=== PATIENT | male | born 1960 | race African-American/Black ===

== ENCOUNTER → 2016-10-08 | Outpatient (CLI) | payer OTHER | LOC: OD 12:01 | PROVIDERS: ATTEND Urology | DX: C61 Malignant neoplasm of prostate (principal) | CPT/HCPCS: 36415; 84153 ==

== ENCOUNTER 2016-11-10 16:15 | Emergency (ER) | payer MEDICAID, OTHER ==
[2016-11-10] MEDS ORDERED: OXYCODONE-ACETAMINOPHEN 5-325 MG TABLET PO ONE ×2 (16:29→19:07)
--- NOTE | 2016-11-10 16:30 | ER Document Report ---
ED Medical Screen (RME) - General Stated Complaint: GROIN PAIN Mode of Arrival: Wheelchair Information source: Patient, Relative - Notes: Patient presents to the emergency department with complaints of severe testicular pain. Patient reports robotic surgery for prostate cancer August 26. He reports he's been doing great. He reports pain started earlier this morning. Denies other symptoms such as fever vomiting diarrhea. Ultrasound notified of testicular ultrasound ordered.. I have greeted and performed a rapid initial assessment of this patient. A comprehensive ED assessment and evaluation of the patient, analysis of test results and completion of the medical decision making process will be conducted by additional ED providers. TRAVEL OUTSIDE OF THE [place] IN LAST 30 DAYS: No - Related Data Allergies/Adverse Reactions: No Known Allergies Allergy (Verified 11/10/16 16:29)
[2016-11-10 16:55] LABS: APPEARANCE,URINE CLEAR; BILIRUBIN,URINE NEGATIVE (NEGATIVE); GLUCOSE, URINE NEGATIVE (NEGATIVE); KETONES,URINE NEGATIVE (NEGATIVE); LEUKOCYTE ESTERASE,URINE NEGATIVE (NEGATIVE); NITRITE,URINE NEGATIVE (NEGATIVE); PROTEIN,URINE NEGATIVE (NEGATIVE); URINE SPECIFIC GRAVITY 1.027; UROBILINOGEN,URINE NEGATIVE mg/dL (<2.0)
--- NOTE | 2016-11-10 18:35 | ER Document Report ---
ED GI/ <ERNESTINANATALIAVIKAS - Last Filed: 11/11/16 04:20> - General Mode of Arrival: Wheelchair TRAVEL OUTSIDE OF THE [place] IN LAST 30 DAYS: No <ANJELICA SCHERER - Last Filed: 11/11/16 07:06> - General Chief Complaint: Testicular Pain Stated Complaint: GROIN PAIN Notes: Patient is a 56-year-old male who presents to the emergency Department complaining of groin pain. Patient is post op from laparoscopic prostate resection for prostate cancer on 08/26/[address] Tariq at [facility]. Patient states that his sudden onset this morning which she noticed after he woke up. Patient states it is not necessarily his scrotum up behind his scrotum within. Denies any notable swelling skin tenderness, erythema or redness any drainage. He states that he has been urinating frequently after his procedure occasional dripping from his penis denies any pyuria, urgency or hematuria. He does note that he had pink tinge to his urine today times one episode. Nausea and vomiting. States that he has been having bowel movements regularly since procedure. His only other postop complication was March 05 hospital for PE DVT. He is on Lovenox twice a day. Denies any past medical history. Denies any history of diabetes Past surgical history as above Social history denies recheck use, alcohol or drug use. pcp is Dr. Michelle (ANJELICA SCHERER) - Related Data Allergies/Adverse Reactions: No Known Allergies Allergy (Verified 11/10/16 16:29) Past Medical History - General Information source: Patient, Relative - - Social History Smoking Status: Never Smoker Chew tobacco use (# tins/day): No Frequency of alcohol use: None Drug Abuse: None Family History: Reviewed & Not Pertinent Patient has suicidal ideation: No Patient has homicidal ideation: No Renal/ Medical History: Denies: Hx Peritoneal Dialysis <ANJELICA SCHERER - Last Filed: 11/11/16 07:06> Review of Systems - Review of Systems Constitutional: No symptoms reported EENT: No symptoms reported Cardiovascular: No symptoms reported Respiratory: No symptoms reported Gastrointestinal: No symptoms reported Genitourinary: See HPI Male Genitourinary: See HPI Musculoskeletal: No symptoms reported Skin: No symptoms reported Hematologic/Lymphatic: No symptoms reported Neurological/Psychological: No symptoms reported <ANJELICA SCHERER - Last Filed: 11/11/16 07:06> Physical Exam <VIKAS LANDRY - Last Filed: 11/11/16 04:20> <ANJELICA SCHERER - Last Filed: 11/11/16 07:06> - Vital signs Vitals: Temp Pulse Resp BP Pulse Ox 98.2 F 88 20 138/83 H 98 11/10/16 16:25 11/10/16 16:25 11/10/16 16:25 11/10/16 16:25 11/10/16 16:25 - Notes Notes: PHYSICAL EXAM GENERAL: Alert, interacts well. HEAD: Normocephalic, atraumatic. NECK: Full range of motion. Supple. Trachea midline. LUNGS: Clear to auscultation bilaterally, no wheezes, rales, or rhonchi. No respiratory distress. HEART: Regular rate and rhythm. No murmurs, gallops, or rubs. ABDOMEN: Soft, nondistended, nontender. No guarding, rebound, or rigidity.. Bowel sounds present in all 4 quadrants. Male : No evidence of scrotal swelling or tenderness. Testicles nontender, symmetrical. Pain to palpation of the perineum to deep palpation. no femoral lympadenopathy EXTREMITIES: Moves all 4 extremities spontaneously. No edema, radial and dorsalis pedis pulses 2/4 bilaterally. No cyanosis. NEUROLOGICAL: Alert and oriented x4. Normal speech. PSYCH: Normal affect, normal mood. SKIN: Warm, dry, normal turgor. No rashes or lesions noted. (ANJELICA SCHERER) Course - Laboratory Result Diagrams: 11/10/16 19:40 11/10/16 19:40 <VIKAS LANDRY - Last Filed: 11/11/16 04:20> - Laboratory Result Diagrams: 11/10/16 19:40 11/10/16 19:40 <ANJELICA SCHERER - Last Filed: 11/11/16 07:06> - Re-evaluation Re-evalutation: 11/11/16 CT of the pelvis with IV contrast with no acute abnormality including no abscess. Consistent with prostatectomy. Called and spoke with patient's personal urologist Dr. tariq, discussed labs, workup, symptoms, vital signs. His recommendation is to place a culture on the urine, to provide patient with pain medication such as Vicodin or Percocet, to have him be seen on Thursday of this week instead of next month, and to return immediately if he develops fever or any other worsening symptoms. Patient is comfortable on reevaluations, I discussed this in detail with patient and significant other at bedside, they state understanding and agreement with the plan. Patient ambulated easily and without difficulty from the department. (VIKAS LANDRY) 11/10/16 19:25 Patient is a 48-year-old male is significant erythema, no acute distress and afebrile. Physical exam concerning pelvic process given recent surgical history. I have contacted supervising physician Dr. Sahil Yi to evaluate the patient and recommended further evaluation. He has recommended CT of the pelvis with IV contrast. I discussed this plan with the patient and family who are agreeable. At this time since the patient admits to SELENA Landry who will take over care of this patient and follow up on CT scan and lab work up (ANJELICA SCHERER) - Vital Signs Vital signs: Temp Pulse Resp BP Pulse Ox 99.7 F 88 18 144/85 H 96 11/10/16 23:18 11/10/16 23:18 11/10/16 23:18 11/10/16 23:18 11/10/16 23:18 - Laboratory Laboratory results interpreted by me: 11/10/16 11/10/16 11/10/16 16:30 19:40 19:40 WBC 15.7 H RBC 5.87 H MCV 78 L MCH 25.6 L RDW 15.1 H Seg Neutrophils % 84.1 H Lymphocytes % 9.6 L Absolute Neutrophils 13.2 H Sodium 132.9 L Chloride 96 L Glucose 121 H Calcium 10.5 H Total Protein 8.5 H Urine Blood SMALL H Discharge <VIKAS LANDRY - Last Filed: 11/11/16 04:20> <ANJELICA SCHERER - Last Filed: 11/11/16 07:06> - Discharge Clinical Impression: Pelvic pain Condition: Stable Disposition: HOME, SELF-CARE Additional Instructions: The source of your pain is not entirely clear at this time, no obvious abnormalities are seen on her workup today. Have a urine culture growing in our laboratory, please follow-up with Dr. tariq in the office on Thursday for a reevaluation. Take the pain medication if needed, take a stool softener with pain medication to avoid constipation. Return immediately if you develop fever, have severe pain or swelling, or have any other concerning symptoms. Prescriptions: Docusate Sodium [Colace 100 mg Capsule] 100 mg PO DAILY #30 capsule Oxycodone HCl/Acetaminophen [Percocet 5-325 mg Tablet] 1 - 2 tab PO Q4H PRN #15 tablet PRN Reason: Referrals: RAQUEL MICHELLE DO [Primary Care Provider] - Follow up as needed
[2016-11-10 19:57] LABS: ABSOLUTE BASOPHILS # (AUTO) 0.1 10^3/uL (0.0-0.2); ABSOLUTE LYMPHOCYTES (AUTO) 1.5 10^3/uL (0.5-4.7); ABSOLUTE MONOCYTES (AUTO) 0.9 10^3/uL (0.1-1.4); ABSOLUTE NEUT (AUTO) 13.2 10^3/uL (1.7-8.2); BASOPHILS % (AUTO) 0.3 % (0-2); EOSINOPHILS % (AUTO) 0.1 % (0-6); LYMPHOCYTES % (AUTO) 9.6 % (13-45); MEAN CORPUSCULAR HEMOGLOBIN 25.6 pg (27.0-33.4); MEAN CORPUSCULAR HGB CONC 32.7 g/dL (32.0-36.0); MEAN CORPUSCULAR VOLUME 78 fl (80-97); MONOCYTES % (AUTO) 5.9 % (3-13); RED BLOOD COUNT 5.87 10^6/uL (4.35-5.55); RED CELL DISTRIBUTION WIDTH 15.1 % (11.5-14.0); SEGMENTED NEUTROPHILS % (AUTO) 84.1 % (42-78); WHITE BLOOD COUNT 15.7 10^3/uL (4.0-10.5)
[2016-11-10 20:16] LABS: ALANINE AMINOTRANSFERASE 31 U/L (21-72); ALBUMIN 4.8 g/dL (3.5-5.0); ALKALINE PHOSPHATASE 68 U/L (38-126); ANION GAP 13 (5-19); ASPARTATE AMINO TRANSFERASE 22 U/L (17-59); BILIRUBIN,TOTAL 0.4 mg/dL (0.2-1.3); BLOOD UREA NITROGEN 14 mg/dL (7-20); CALCIUM 10.5 mg/dL (8.4-10.2); CARBON DIOXIDE 24 mmol/L (22-30); CHLORIDE 96 mmol/L (98-107); CREATININE RESULT 0.92 mg/dL (0.52-1.25); GLUCOSE 121 mg/dL (75-110); POTASSIUM 4.9 mmol/L (3.6-5.0); SODIUM 132.9 mmol/L (137-145); TOTAL PROTEIN 8.5 g/dL (6.3-8.2)
[2016-11-10] MEDS ORDERED: NORMAL SALINE 1000 ML 1,000 ML IV ONE (20:48)
[2016-11-10] MEDS ORDERED: HYDROCODONE/ACETAMINOPHEN 5-325 MG 6 TAB/DSPK PO PRN (22:49)
[2016-11-10 23:21] VITALS: BP 144/85
== END 2016-11-10 23:23 | disposition home or self-care (01) ==
LOC: ER 16:15
DX: R10.2 Pelvic and perineal pain (principal); N50.812 Left testicular pain; N50.811 Right testicular pain; Z98.890 Other specified postprocedural states; Z85.46 Personal history of malignant neoplasm of prostate; R35.0 Frequency of micturition; R11.2 Nausea with vomiting, unspecified; Z79.899 Other long term (current) drug therapy
CPT/HCPCS: 99284; 96360; 36415; 87086; 85025; 80053; 81001; 76870; 93976; 74177; J7030

== ENCOUNTER 2017-01-06 07:59 | Emergency (ER) | payer MEDICAID ==
[2017-01-06 08:57] LABS: APPEARANCE,URINE SLIGHTLY-CLOUDY; BILIRUBIN,URINE NEGATIVE (NEGATIVE); GLUCOSE, URINE NEGATIVE (NEGATIVE); KETONES,URINE NEGATIVE (NEGATIVE); LEUKOCYTE ESTERASE,URINE NEGATIVE (NEGATIVE); NITRITE,URINE NEGATIVE (NEGATIVE); PROTEIN,URINE NEGATIVE (NEGATIVE); URINE SPECIFIC GRAVITY 1.019; UROBILINOGEN,URINE NEGATIVE mg/dL (<2.0)
--- NOTE | 2017-01-06 09:54 | ER Document Report ---
ED General - General Chief Complaint: Pain With Urination Stated Complaint: URINARY PROBLEMS TRAVEL OUTSIDE OF THE [place] IN LAST 30 DAYS: No - Related Data Allergies/Adverse Reactions: No Known Allergies Allergy (Verified 01/06/17 08:04) Past Medical History - Social History Smoking Status: Never Smoker Chew tobacco use (# tins/day): No Frequency of alcohol use: None Drug Abuse: None Family History: Reviewed & Not Pertinent Patient has suicidal ideation: No Patient has homicidal ideation: No - Past Medical History Cardiac Medical History: Reports: Hx Hypercholesterolemia, Hx Hypertension Neurological Medical History: Reports: Hx Seizures Renal/ Medical History: Denies: Hx Peritoneal Dialysis Physical Exam - Vital signs Vitals: Temp Pulse Resp BP Pulse Ox 98.6 F 96 18 145/99 H 99 01/06/17 08:04 01/06/17 08:04 01/06/17 08:04 01/06/17 08:04 01/06/17 08:04 Course - Vital Signs Vital signs: Temp Pulse Resp BP Pulse Ox 98.6 F 96 18 145/99 H 99 01/06/17 08:04 01/06/17 08:04 01/06/17 08:04 01/06/17 08:04 01/06/17 08:04 - Laboratory Laboratory results interpreted by me: 01/06/17 08:20 Urine Blood LARGE H Discharge - Discharge Clinical Impression: Penile pain, Hematuria Condition: Stable Disposition: HOME, SELF-CARE Instructions: Hematuria ([facility]) Prescriptions: Ciprofloxacin HCl [Cipro 500 mg Tablet] 500 mg PO BID #20 tablet Referrals: RAQUEL BENEDICT DO [Primary Care Provider] - Follow up as needed OCHOA MAX MD [ACTIVE STAFF] - Follow up in 3-5 days
[2017-01-06 11:08] VITALS: BP 140/89
== END 2017-01-06 11:08 | disposition home or self-care (01) ==
LOC: ER 07:59
DX: R31.9 Hematuria, unspecified (principal); N48.89 Other specified disorders of penis; R10.9 Unspecified abdominal pain; R30.0 Dysuria; E78.00 Pure hypercholesterolemia, unspecified; I10 Essential (primary) hypertension
CPT/HCPCS: 76380; 81001; 87086; 99284

== ENCOUNTER 2017-01-06 14:10 | Emergency (ER) | payer OTHER, MEDICAID ==
--- NOTE | 2017-01-06 15:13 | ER Document Report ---
ED GI/ <DONNELL,ALISE - Last Filed: 01/06/17 15:20> - General Mode of Arrival: Ambulatory Information source: Patient, Relative TRAVEL OUTSIDE OF THE [place] IN LAST 30 DAYS: No - HPI Patient complains to provider of: Dysuria, Groin pain - penile pain Onset: This morning Location: Other - Penile Associated symptoms: Other - see notes above <ALMA SALAZAR - Last Filed: 01/06/17 16:08> - General Chief Complaint: Inability to Void Stated Complaint: URINATION CONCERNS Time Seen by Provider: 01/06/17 14:41 Notes: 56 year old male with history of prostatectomy (July 2016; secondary to Stage II prostatic cancer) presents to the ED complaining of penile pain and inability to void that started this morning. Patient reports that his symptoms first started as a 'funny feeling' to his penis and states that he had a similar sensation on 11/27/2016 when he was here for similar complaints of dysuria. When the patient was here in October, he was having increased frequency of urination and dysuria, but was unable to completely void. Patient denies fever. Patient states that he was seen here this morning with the same complaint where a CT was performed (showed inflammation of the prostate) and was discharged with Cipro. Patient returned to the ED when he was again unable to void this afternoon. Patient is currently on Dilantin, Lovenox, and Fosinopril. Patient has a urology appointment tomorrow with Dr. Tariq at [facility]. Patient's primary care provider is Dr. Michelle. (ALMA SALAZAR) - Related Data Allergies/Adverse Reactions: No Known Allergies Allergy (Verified 01/06/17 14:23) Past Medical History - General Information source: Patient - Social History Smoking Status: Unknown if Ever Smoked Family History: Reviewed & Not Pertinent Patient has suicidal ideation: No Patient has homicidal ideation: No - Past Medical History Cardiac Medical History: Reports: Hx Hypercholesterolemia, Hx Hypertension Neurological Medical History: Reports: Hx Seizures Renal/ Medical History: Denies: Hx Peritoneal Dialysis <ALMA SALAZAR - Last Filed: 01/06/17 16:08> Review of Systems - Review of Systems Constitutional: No symptoms reported. denies: Fever EENT: No symptoms reported Cardiovascular: No symptoms reported Respiratory: No symptoms reported Gastrointestinal: No symptoms reported Genitourinary: See HPI, Burning, Dysuria, Pain - penile, Other - inability to void Male Genitourinary: No symptoms reported Musculoskeletal: No symptoms reported Skin: No symptoms reported Hematologic/Lymphatic: No symptoms reported Neurological/Psychological: No symptoms reported -: Yes All other systems reviewed and negative <ALAM SALAZAR - Last Filed: 01/06/17 16:08> Physical Exam <ALISE JACOBO - Last Filed: 01/06/17 15:20> - General General appearance: Alert In distress: None - HEENT Head: Normocephalic, Atraumatic Eyes: Normal Extraocular movements intact: Yes Pupils: PERRL - Respiratory Respiratory status: No respiratory distress Breath sounds: Normal - Cardiovascular Rhythm: Regular Heart sounds: Normal auscultation - Abdominal Inspection: Normal Distension: No distension Tenderness: Tender - mild suprapubic tenderness to palpation - Back Back: Normal - Extremities General upper extremity: Normal inspection, Normal ROM General lower extremity: Normal inspection, Normal ROM - Neurological Neuro grossly intact: Yes - Psychological Associated symptoms: Normal affect, Normal mood - Skin Skin Temperature: Warm Skin Moisture: Dry Skin Color: Normal <ALMA SALAZAR - Last Filed: 01/06/17 16:08> - Vital signs Vitals: Temp Pulse Resp BP Pulse Ox 97.8 F 126 H 24 H 155/126 H 99 01/06/17 14:18 01/06/17 14:18 01/06/17 14:18 01/06/17 14:18 01/06/17 14:18 - Genitourinary Notes: Damon Catheter in place with 250 mL of clear urine. (ALMA SALAZAR) Course - Consults Dr. Tariq Time consulted: 15:10 Consulted provider: follow-up in office - Dr. tariq [facility]. Case was discussed with him, we'll send a CD with the CT scan from today and from 11/10/2016 for the patient to take to his office follow -up appointment tomorrow <ALISE JACOBO - Last Filed: 01/06/17 15:20> <ALMA SALAZAR - Last Filed: 01/06/17 16:08> - Re-evaluation Re-evalutation: 01/06/17 15:21 Patient reports he feels considerably better after the catheter was placed. There is 250 ML's of clear urine drained. He has an appointment with his urologist tomorrow at 11:15 AM. (ALISE JACOBO) - Vital Signs Vital signs: Temp Pulse Resp BP Pulse Ox 98.9 F 98 18 147/90 H 95 01/06/17 15:32 01/06/17 15:32 01/06/17 15:32 01/06/17 15:32 01/06/17 15:32 Discharge <ALISE JACOBO - Last Filed: 01/06/17 15:20> <ALMA SALAZAR - Last Filed: 01/06/17 16:08> - Discharge Clinical Impression: Inflammatory disease of prostate, unspecified Additional Instructions: Drink plenty of fluids today. Leave the Damon catheter in. Take the CD with the CT scans to see your urologist tomorrow as planned. RETURN TO THE EMERGENCY ROOM IF ANY NEW OR WORSENING SYMPTOMS. Referrals: KRISTIAN SALAAZR MD [ACTIVE STAFF] - Follow up as needed Scribe Attestation: 01/06/17 15:24 I personally performed the services described in the documentation, reviewed and edited the documentation which was dictated to the scribe in my presence, and it accurately records my words and actions. (ALISE JACOBO) Scribe Documentation - Scribe Written by Scribe:: John Rod, 01/06/2017 1518 acting as scribe for :: Donnell <ALMA SALAZAR - Last Filed: 01/06/17 16:08>
[2017-01-06 15:52] VITALS: BP 147/90
== END 2017-01-06 15:52 | disposition home or self-care (01) ==
LOC: ER 14:10
DX: N41.9 Inflammatory disease of prostate, unspecified (principal); R33.9 Retention of urine, unspecified; N48.89 Other specified disorders of penis; E78.00 Pure hypercholesterolemia, unspecified; I10 Essential (primary) hypertension; Z90.79 Acquired absence of other genital organ(s); Z85.46 Personal history of malignant neoplasm of prostate
CPT/HCPCS: 51702; 99283

== ENCOUNTER 2017-01-06 21:00 | Emergency (ER) | payer MEDICAID, OTHER ==
--- NOTE | 2017-01-06 23:13 | ER Document Report ---
ED General - General Chief Complaint: Penile Bleeding Stated Complaint: PENILE BLEEDING Time Seen by Provider: 01/06/17 22:20 Notes: Patient is a very pleasant 56-year-old male who presents for complaint of hematuria. Patient was seen earlier today. Patient has negative and possible inflammation around prostate on CT scan. He said a previous prostatectomy. He also some urinary retention. Full catheter was placed which gave him good relief. Case was discussed with his urologist, Dr. tariq, who is going to see the patient in the morning. Patient is on Lovenox due to history of DVT in his right leg. DVT was there in August. He's had no follow-up ultrasounds of his legs since August. Patient came back tonight because he felt some burning and then starts noticed bloody urine going into the Vu bag. No fevers. No other complaints at this time. TRAVEL OUTSIDE OF THE [place] IN LAST 30 DAYS: No - Related Data Allergies/Adverse Reactions: No Known Allergies Allergy (Verified 01/06/17 14:23) Past Medical History - Social History Smoking Status: Unknown if Ever Smoked Frequency of alcohol use: None Drug Abuse: None Family History: Reviewed & Not Pertinent - Past Medical History Cardiac Medical History: Reports: Hx Hypercholesterolemia, Hx Hypertension Neurological Medical History: Reports: Hx Seizures Renal/ Medical History: Denies: Hx Peritoneal Dialysis Review of Systems - Review of Systems Notes: My Normal Review Basic REVIEW OF SYSTEMS: CONSTITUTIONAL : Denies fever, chills, or sweats. Denies recent illness. GASTROINTESTINAL: Denies abdominal pain. Denies nausea, vomiting, or diarrhea. Denies constipation. Last BM: GENITOURINARY: Hematuria MUSCULOSKELETAL: Denies neck or back pain or joint pain or swelling. SKIN: Denies rash or skin lesions. HEMATOLOGIC : On Lovenox NEUROLOGICAL: Denies altered mental status or loss of consciousness. Denies weakness or paralysis or loss of use of either side. Denies problems with gait or speech. Denies sensory or motor loss. ALL OTHER SYSTEMS REVIEWED AND NEGATIVE. Physical Exam - Notes Notes: General Appearance: Well nourished, alert, cooperative, no acute distress, mild obvious discomfort. Vitals: reviewed, See vital signs table. Head: no swelling or tenderness to the head Eyes: PERRL, EOMI, Conjuctiva clear Abdomen: Normal BS, soft, No rigidity, No abdominal tenderness, No guarding, no rebound, no abdominal masses, no organomegaly Genitourinary: Vu catheter in place. Patient does have some dry blood around the meatus. He does have blood-tinged urine in the Vu bag. No active flow of urine or blood around the meatus or catheter at this time. Extremities: strength 5/5 in all extremities, good pulses in all extremities, no swelling or tenderness in the extremities, no edema. Skin: warm, dry, appropriate color, no rash Neuro: speech clear, oriented x 3, normal affect, responds appropriately to questions. Course - Re-evaluation Re-evalutation: 01/06/17 23:38 Was at bedside and did a bedside ultrasound. On bedside ultrasound the bladder is flat and the vu balloon does appear to be in the bladder; However, when we went to flush the catheter patient had increased pain. I did deflate the balloon and readjust the catheter. Now only flush catheter patient does not have pain. He has pink to light red colored urine or return. Patient is feeling improved. - Laboratory Result Diagrams: 01/06/17 23:50 01/06/17 23:50 Laboratory results interpreted by me: 01/06/17 01/06/17 23:50 23:50 WBC 13.2 H RBC 5.65 H MCV 78 L MCH 25.5 L RDW 14.7 H Absolute Neutrophils 9.5 H Glucose 117 H - Transfer of Care Notes: 01/07/17 00:54 Patient is feeling much improved. I did reposition Vu catheter and flush it. He is now having clear urine return. We'll hold his Lovenox. I did speak with Niru, the physician's assistant credit manager for Dr. tariq. She agrees with plan and will have him follow-up with Dr. tariq in the morning. I informed patient to return if has any pain, feels that his catheter is obstructed, fevers, or feels unwell. Patient agrees with plan and will be discharged home. Dictation of this chart was performed using voice recognition software; therefore, there may be some unintended grammatical errors. Discharge - Discharge Clinical Impression: Hematuria Condition: Good Disposition: HOME, SELF-CARE Additional Instructions: Please return to the ER immediately if you develop worsening pain, the catheter appears obstructed or is not flowing urine appropriately, you have fevers, or have further concerns. Please follow up with your urologist tomorrow as scheduled. Please hold your Lovenox for [address] tariq requests you to restart it. please return to the ER immediately if you have chest pain or difficulty breathing. Referrals: RAQUEL BENEDICT, [Primary Care Provider] - Follow up as needed
[2017-01-06 23:58] LABS: ABSOLUTE BASOPHILS # (AUTO) 0.1 10^3/uL (0.0-0.2); ABSOLUTE LYMPHOCYTES (AUTO) 2.3 10^3/uL (0.5-4.7); ABSOLUTE MONOCYTES (AUTO) 1.3 10^3/uL (0.1-1.4); ABSOLUTE NEUT (AUTO) 9.5 10^3/uL (1.7-8.2); BASOPHILS % (AUTO) 0.7 % (0-2); EOSINOPHILS % (AUTO) 0.2 % (0-6); HEMATOCRIT 43.9 % (37.9-51.0); HEMOGLOBIN 14.4 g/dL (13.5-17.0); HGB HCT DIFFERENCE -0.7; LYMPHOCYTES % (AUTO) 17.6 % (13-45); MEAN CORPUSCULAR HEMOGLOBIN 25.5 pg (27.0-33.4); MEAN CORPUSCULAR HGB CONC 32.9 g/dL (32.0-36.0); MEAN CORPUSCULAR VOLUME 78 fl (80-97); MONOCYTES % (AUTO) 10.1 % (3-13); RED BLOOD COUNT 5.65 10^6/uL (4.35-5.55); RED CELL DISTRIBUTION WIDTH 14.7 % (11.5-14.0); SEGMENTED NEUTROPHILS % (AUTO) 71.4 % (42-78); WHITE BLOOD COUNT 13.2 10^3/uL (4.0-10.5)
[2017-01-07 00:12] LABS: ANION GAP 14 (5-19); BLOOD UREA NITROGEN 12 mg/dL (7-20); CALCIUM 9.8 mg/dL (8.4-10.2); CARBON DIOXIDE 22 mmol/L (22-30); CHLORIDE 102 mmol/L (98-107); CREATININE RESULT 0.93 mg/dL (0.52-1.25); GLUCOSE 117 mg/dL (75-110)
[2017-01-07 02:16] VITALS: BP 144/100
== END 2017-01-07 01:05 | disposition home or self-care (01) ==
LOC: ER 21:00
DX: R31.9 Hematuria, unspecified (principal); R33.9 Retention of urine, unspecified; E78.00 Pure hypercholesterolemia, unspecified; I10 Essential (primary) hypertension; Z86.718 Personal history of other venous thrombosis and embolism; Z79.01 Long term (current) use of anticoagulants
CPT/HCPCS: 36415; 51702; 76380; 80048; 81001; 85025; 87086; 99283; 99284

== ENCOUNTER → 2017-03-04 | Outpatient (CLI) | payer MEDICAID, OTHER ==
--- NOTE | 2017-03-04 13:37 | RADIOLOGY REPORT (SQ) ---
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 Images reviewed wi th soft tissue and bone windows. Reconstructed coronal and sagittal MPR images reviewed. All images stored on PACS. All CT scanners at this facility use dose modulation, iterative reconstruction, and/or weight based d osing when appropriate to reduce radiation dose to as low as reasonably achievable (ALARA). [facility]: Dose Right [facility]: CareDose [facility]: Dose Right [facility]: Teradose 4D [facility]: Smart YouScan RADIATION DOSE: Up-to-date CT equipment and radiation dose reduction techniques were employed. CTDIv ol: 10.0 - 11.8 mGy. DLP: 658 mGy-cm. mGy. LIMITATIONS: None. FINDINGS: PELVIC BONES: No acute fracture. No worrisome bone lesions. VISUALIZED SPINE: No acute findings. HIPS: No acute fracture or dislocation. No worrisome bone lesions. PELVIC SOFT TISSUES: Post prostatectomy. No pelvic masses or adenopathy. Urinary bladder incomplete ly distended on the delayed images. No gross bladder stones or masses EXTRAPELVIC SOFT TISSUES: No significant findings. OTHER: No other significant finding. IMPRESSION: Post prostatectomy. No pelvic masses or adenopathy. TECHNICAL DOCUMENTATION: JOB ID: [id number] Quality ID # [id number]: Final reports with documentation of one or more dose reduction techniques (e.g., Au tomated exposure control, adjustment of the mA and/or kV according to patient size, use of iterative reconstruction technique) 2010 [employer]- All Rights Reserved
== END ==
LOC: RAD 09:35
PROVIDERS: ATTEND Urology
DX: C61 Malignant neoplasm of prostate (principal); R31.0 Gross hematuria; N50.1 Vascular disorders of male genital organs
CPT/HCPCS: 72193; 82565

== ENCOUNTER → 2017-04-06 | Outpatient (CLI) | payer MEDICAID, OTHER | LOC: OD 08:53 | PROVIDERS: ATTEND Urology | DX: C61 Malignant neoplasm of prostate (principal) | CPT/HCPCS: 36415; 84153 ==

== ENCOUNTER → 2017-10-06 | Outpatient (CLI) | payer MEDICAID | LOC: OD 08:15 | PROVIDERS: ATTEND Urology | DX: C61 Malignant neoplasm of prostate (principal) | CPT/HCPCS: 36415; 84153 ==

== ENCOUNTER 2018-12-01 08:51 | Inpatient (IN) | payer MEDICAID ==
[2018-12-01] MEDS ORDERED: ASPIRIN 81 MG TABLET, CHEWABLE PO ONE ×2 (09:27→09:54)
--- NOTE | 2018-12-01 09:34 | ER Document Report ---
ED Medical Screen (RME) - General Chief Complaint: Chest Pain Stated Complaint: SHORTNESS OF BREATH Time Seen by Provider: 12/01/18 09:23 Primary Care Provider: BIJAL NICHOLS MD [Primary Care Provider] - Follow up as needed TRAVEL OUTSIDE OF THE [place] IN LAST 30 DAYS: No - HPI Notes: 12/01/18 09:31 Patient is a 58-year-old male with a history of PE/DVT, hypertension, hyperchole sterolemia, seizures who presents to the emergency department complaining of new onset dyspnea on exertion after walking stairs twice this morning at his house with associated chest pain more so on the left side of the sternum that does not radiate. Patient states that ambulation does make his symptoms worse. He is not on any blood thinning medications. He did take 1 baby aspirin this morning. Denies drug allergies. Denies any headache, fever, diaphoresis, dizziness, neck pain, URI, sore throat, palpitations, syncope, cough, wheeze, abdominal pain, nausea/vomiting/diarrhea, urinary retention, dysuria, hematuria, or rash. I have treated and performed a rapid initial assessment of this patient. A comprehensive ED assessment and evaluation of the patient, analysis of test results and completion of medical decision making process will be conducted by additional ED providers. Pt to have CTA performed prior to going to room. PHYSICAL EXAMINATION: GENERAL: 4-5 word sentences no other acute distress. A&Ox4. Answers questions appropriately. LUNGS: Breath sounds clear to auscultation bilaterally and equal. No wheezes rales or rhonchi. HEART: Tachycardic, Regular rate and rhythm without murmurs, rubs, gallops. Extremities: No cyanosis, clubbing, or edema b/l. NEUROLOGICAL: Normal speech, normal gait. PSYCH: Normal mood, normal affect. - Related Data Allergies/Adverse Reactions: No Known Allergies Allergy (Verified 12/01/18 08:51) Past Medical History - Past Medical History Cardiac Medical History: Reports: Hx Hypercholesterolemia, Hx Hypertension Neurological Medical History: Reports: Hx Seizures Renal/ Medical History: Denies: Hx Peritoneal Dialysis Physical Exam - Vital signs Vitals: Temp Pulse Resp BP Pulse Ox 97.5 F 109 H 18 152/111 H 98 12/01/18 09:02 12/01/18 09:02 12/01/18 09:02 12/01/18 09:02 12/01/18 09:02 Course - Vital Signs Vital signs: Temp Pulse Resp BP Pulse Ox 97.5 F 109 H 18 152/111 H 98 12/01/18 09:02 12/01/18 09:02 12/01/18 09:02 12/01/18 09:02 12/01/18 09:02 Doctor's Discharge - Discharge Referrals: BIJAL NICHOLS MD [Primary Care Provider] - Follow up as needed
[2018-12-01 09:59] LABS: ABSOLUTE BASOPHILS # (AUTO) 0.1 10^3/uL (0.0-0.2); ABSOLUTE EOSINOPHILS # (AUTO) 0.2 10^3/uL (0.0-0.6); ABSOLUTE LYMPHOCYTES (AUTO) 2.5 10^3/uL (0.5-4.7); ABSOLUTE MONOCYTES (AUTO) 0.8 10^3/uL (0.1-1.4); ABSOLUTE NEUT (AUTO) 6.3 10^3/uL (1.7-8.2); BASOPHILS % (AUTO) 0.6 % (0-2); EOSINOPHILS % (AUTO) 1.9 % (0-6); HEMATOCRIT 50.8 % (37.9-51.0); HEMOGLOBIN 17.1 g/dL (13.5-17.0); LYMPHOCYTES % (AUTO) 25.7 % (13-45); MEAN CORPUSCULAR HEMOGLOBIN 26.6 pg (27.0-33.4); MEAN CORPUSCULAR HGB CONC 33.7 g/dL (32.0-36.0); MEAN CORPUSCULAR VOLUME 79 fl (80-97); MONOCYTES % (AUTO) 7.7 % (3-13); PLATELET COUNT 175 10^3/uL (150-450); RED BLOOD COUNT 6.44 10^6/uL (4.35-5.55); RED CELL DISTRIBUTION WIDTH 13.6 % (11.5-14.0); SEGMENTED NEUTROPHILS % (AUTO) 64.1 % (42-78); TOTAL CELLS COUNTED % (AUTO) 100 %; WHITE BLOOD COUNT 9.9 10^3/uL (4.0-10.5)
[2018-12-01 10:11] LABS: INTERNATIONAL RATION (INR) 1.11; PARTIAL THROMBOPLASTIN TIME 30.9 SEC (23.5-35.8); PROTHROMBIN TIME 14.9 SEC (11.4-15.4)
--- NOTE | 2018-12-01 10:23 | RADIOLOGY REPORT (SQ) ---
EXAM DESCRIPTION: CTA CHEST COMPLETED DATE/TIME: 12/01/2018 10:07 am REASON FOR STUDY: SILVA, CP, h/o PE COMPARISON: 03/04/2017 TECHNIQUE: CT scan of the chest performed using helical scanning technique with dynamic intravenous contrast injection. Images reviewed with lung, soft tissue and bone windows. Reconstructed coronal and sagittal MPR images reviewed. Additional 3 dimensional post-processing performed to develop Maximal Intensity Projection images ([place] P). All images stored on PACS. All CT scanners at this facility use dose modulation, iterative reconstruction, and/or weight based d osing when appropriate to reduce radiation dose to as low as reasonably achievable (ALARA). [facility]: Dose Right [facility]: CareDose [facility]: Dose Right [facility]: Teradose 4D [facility]: Food and Beverage CONTRAST TYPE AND DOSE: contrast/concentration: Isovue 350.00 mg/ml; Total Contrast Delivered: 80.0 ml; Total Saline Delivered: 90.0 ml 80 cc Isovue 350 Contrast bolus optimized for the pulmonary arteries. Not diagnostic for the aorta. RENAL FUNCTION: Pending RADIATION DOSE: CT Rad equipment meets quality standard of care and radiation dose reduction techniq ues were employed. CTDIvol: 18.0 - 23.2 mGy. DLP: 675 mGy-cm. . LIMITATIONS: None. FINDINGS: LUNGS AND PLEURA: Minimal lingular atelectasis. No focal consolidation. No pleural effus ion or pneumothorax. No suspicious nodules or masses. AORTA AND GREAT VESSELS: No aneurysm. Contrast bolus not optimized for the aorta. HEART: Normal heart size. There is evidence of right ventricular strain with flattening of the inter ventricular septum and abnormal right to left ventricular ratio. No significant coronary artery calci fications. PULMONARY ARTERIES: There are is a significant pulmonary embolus burden with saddle embolus, bilatera l main pulmonary artery, lobar and segmental clot greatest within the lower lobes. Evidence of right heart strain with flattening of the interventricular septum. HILAR AND MEDIASTINAL STRUCTURES: No identified masses or abnormal nodes. HARDWARE: None in the chest. UPPER ABDOMEN: No significant findings. Limited exam. THYROID AND OTHER SOFT TISSUES: No masses. No adenopathy. BONES: No acute or significant finding. 3D MIPS: Confirm above findings. OTHER: No other significant finding. IMPRESSION: Significant pulmonary embolus burden including saddle embolus, bilateral main pulmonary arteries, lobar and segmental clot greatest within the bilateral lower lobes. Evidence of right hear t strain with flattening of the interventricular septum. Pertinent findings on the imaging study reported as a CRITICAL RESULT to Dr. Zamora at10:14 on 9. Category of Critical Result: Pulmonary embolus with evidence of right heart strain. COMMENT: Quality ID # [id number]: Final reports with documentation of one or more dose reduction techniques (e.g., Automated exposure control, adjustment of the mA and/or kV according to patient size, use of iterative reconstruction technique) TECHNICAL DOCUMENTATION: JOB ID: [id number] [employer]- All Rights Reserved Reading location - IP[facility]workstation name: [email or web address]
--- NOTE | 2018-12-01 10:29 | ER Document Report ---
ED General - General Chief Complaint: Chest Pain Stated Complaint: SHORTNESS OF BREATH Time Seen by Provider: 12/01/18 09:23 TRAVEL OUTSIDE OF THE [place] IN LAST 30 DAYS: No - HPI Notes: Patient is a 58-year-old male that presents to the emergency department for chief complaint of shortness of breath. Patient states he had acute onset of chest pressure and shortness of breath when walking upstairs this morning. He states he has a tightness across his anterior chest. He states that he became very dyspneic and his shortness of breath only minimally improved with sitting. He does have a history of PE and DVT after surgery 2 years ago. He did a course of Lovenox for 8 months and is currently not anticoagulated. His last travel was in July 2018 when he went to [place]. He does note on return from [place] he had some edema in his right lower extremity. He states that that edema seems to have improved over the last few days. Patient did take a baby aspirin at home prior to coming to the emergency room. Past Medical History: Seizure, hypertension, hyperlipidemia, history of PE and history of DVT Past Surgical History: Reviewed in chart Social History: Former smoker. Denies drugs and alcohol Family History: Reviewed and noncontributory for presenting illness Allergies: Reviewed, see documented allergy list. REVIEW OF SYSTEMS: CONSTITUTIONAL : No fever No chills No diaphoresis No recent illness EENT: No vision changes No congestion No sore throat CARDIOVASCULAR: chest pain palpitations RESPIRATORY: shortness of breath No cough difficulty breathing GASTROINTESTINAL: No abdominal pain No nausea No vomiting No diarrhea GENITOURINARY: No dysuria No hematuria No difficulty urinating MUSCULOSKELETAL: No back pain No leg pain No arm pain SKIN: No rashes No lesions LYMPHATIC: No swollen, enlarged glands. NEUROLOGICAL: No lightheadedness No headache No weakness No paresthesias PSYCHIATRIC: No anxiety No depression PHYSICAL EXAMINATION: Vital signs reviewed, nursing noted reviewed. GENERAL: Well-appearing, well-nourished and in no acute distress. HEAD: Atraumatic, normocephalic. EYES: Eyes appear normal, extraocular movements intact, sclera anicteric, conjunctiva are normal. ENT: nares patent, oropharynx clear without exudates. Moist mucous membranes. NECK: Normal range of motion, supple without lymphadenopathy LUNGS: Breath sounds clear to auscultation bilaterally and equal. No wheezes rales or rhonchi. HEART: Tachycardic rate and regular rhythm without murmurs ABDOMEN: Soft, nontender, normoactive bowel sounds. No rebound, guarding, or rigidity. No masses appreciated. EXTREMITIES: Trace pretibial edema bilaterally, right calf slightly larger than left calf with no focal tenderness. NEUROLOGICAL: No focal neurological deficits. Moves all extremities spontaneously Motor and sensory grossly intact on exam. PSYCH: Normal mood, normal affect. SKIN: Warm, Dry, normal turgor, no rashes or lesions noted on exposed skin - Related Data Allergies/Adverse Reactions: No Known Allergies Allergy (Verified 12/01/18 08:51) Past Medical History - Social History Smoking Status: Former Smoker Family History: Reviewed & Not Pertinent Patient has suicidal ideation: No Patient has homicidal ideation: No - Past Medical History Cardiac Medical History: Reports: Hx Hypercholesterolemia, Hx Hypertension Neurological Medical History: Reports: Hx Seizures Renal/ Medical History: Denies: Hx Peritoneal Dialysis Physical Exam - Vital signs Vitals: Temp Pulse Resp BP Pulse Ox 97.5 F 109 H 18 152/111 H 98 12/01/18 09:02 12/01/18 09:02 12/01/18 09:02 12/01/18 09:02 12/01/18 09:02 Course - Re-evaluation Re-evalutation: 12/01/18 10:28 Vitals reviewed. Nursing notes reviewed. Patient has saddle embolism with right heart strain on CTA. He will be started on heparin. He is in no acute respiratory distress. He is oxygenating well on room air. 12/01/18 11:15 Patient's care was discussed with the cloth layer at [facility]. Because patient is not in shock and is oxygenating well on room air with no respiratory distress he did not feel he was a candidate for embolectomy or TPA. He did not feel patient was appropriate for admission at their ICU since he will not be receiving intervention. I did discuss patient's care then with Dr. Chowdary who has accepted patient for admission. Laboratory 12/01/18 12/01/18 12/01/18 09:40 09:40 09:40 WBC 9.9 RBC 6.44 H Hgb 17.1 H Hct 50.8 MCV 79 L MCH 26.6 L MCHC 33.7 RDW 13.6 Plt Count 175 Seg Neutrophils % 64.1 Lymphocytes % 25.7 Monocytes % 7.7 Eosinophils % 1.9 Basophils % 0.6 Absolute Neutrophils 6.3 Absolute Lymphocytes 2.5 Absolute Monocytes 0.8 Absolute Eosinophils 0.2 Absolute Basophils 0.1 PT 14.9 INR 1.11 APTT 30.9 Sodium Cancelled Potassium Cancelled Chloride Cancelled Carbon Dioxide Cancelled Anion Gap Cancelled BUN Cancelled Creatinine Cancelled Est GFR ( Amer) Cancelled Est GFR (Non-Af Amer) Cancelled Glucose Cancelled Calcium Cancelled Total Bilirubin Cancelled Direct Bilirubin Cancelled Neonat Total Bilirubin Cancelled Neonat Direct Bilirubin Cancelled Neonat Indirect Bili Cancelled AST Cancelled ALT Cancelled Alkaline Phosphatase Cancelled Troponin I NT-Pro-B Natriuret Pep Total Protein Cancelled Albumin Cancelled 12/01/18 09:40 WBC RBC Hgb Hct MCV MCH MCHC RDW Plt Count Seg Neutrophils % Lymphocytes % Monocytes % Eosinophils % Basophils % Absolute Neutrophils Absolute Lymphocytes Absolute Monocytes Absolute Eosinophils Absolute Basophils PT INR APTT Sodium Potassium Chloride Carbon Dioxide Anion Gap BUN Creatinine Est GFR ( Amer) Est GFR (Non-Af Amer) Glucose Calcium Total Bilirubin Direct Bilirubin Neonat Total Bilirubin Neonat Direct Bilirubin Neonat Indirect Bili AST ALT Alkaline Phosphatase Troponin I Cancelled NT-Pro-B Natriuret Pep Cancelled Total Protein Albumin Chest/Abdomen CTA 12/01/18 09:30 IMPRESSION: Significant pulmonary embolus burden including saddle embolus, bilateral main pulmonary arteries, lobar and segmental clot greatest within the bilateral lower lobes. Evidence of right heart strain with flattening of the interventricular septum. Pertinent findings on the imaging study reported as a CRITICAL RESULT to Dr. Zamora at10:14 on 12/01/2018. Category of Critical Result: Pulmonary embolus with evidence of right heart strain. - Vital Signs Vital signs: Temp Pulse Resp BP Pulse Ox 97.5 F 109 H 16 141/103 H 96 12/01/18 09:02 12/01/18 09:02 12/01/18 11:10 12/01/18 11:10 12/01/18 11:10 - Laboratory Result Diagrams: 12/01/18 09:40 12/01/18 11:09 Laboratory results interpreted by me: 12/01/18 12/01/18 12/01/18 09:40 10:48 11:09 RBC 6.44 H Hgb 17.1 H MCV 79 L MCH 26.6 L Calcium 10.4 H Total Protein 8.9 H Urine Blood SMALL H Critical Care Note - Critical Care Note Total time excluding time spent on procedures (mins): 40 Comments: Critical care time 40 exclusive from separate billable procedures for a patient requiring complex medical decision making, and high potential for clinical deter ioration. Time spent obtaining history from patient or surrogate, discussions with consultants, development of treatment plan with patient or surrogate, evaluation of patient's response to treatment, examination of patient, ordering and performing treatments and interventions, ordering and review of laboratory studies, re-evaluation of patient's condition, ordering and review of radiographic studies and review of old charts Discharge - Discharge Clinical Impression: Bilateral pulmonary embolism Condition: Stable Disposition: ADMITTED INPATIENT Admitting Provider: Hospitalist Unit Admitted: [facility]
[2018-12-01 11:37] LABS: APPEARANCE,URINE CLEAR; BILIRUBIN,URINE NEGATIVE (NEGATIVE); COLOR,URINE COLORLESS; GLUCOSE, URINE NEGATIVE (NEGATIVE); KETONES,URINE NEGATIVE (NEGATIVE); LEUKOCYTE ESTERASE,URINE NEGATIVE (NEGATIVE); NITRITE,URINE NEGATIVE (NEGATIVE); PROTEIN,URINE NEGATIVE (NEGATIVE); URINE SPECIFIC GRAVITY 1.016; UROBILINOGEN,URINE NEGATIVE mg/dL (<2.0)
[2018-12-01] MEDS ORDERED: HEPARIN SOD (PORCINE) 1,000 UNIT/ML 10 ML VIAL IV ONE (11:41)
--- NOTE | 2018-12-01 11:49 | EKG REPORT ---
SEVERITY:- ABNORMAL ECG - SINUS TACHYCARDIA VENTRICULAR PREMATURE COMPLEX PROBABLE LEFT ATRIAL ABNORMALITY NONSPECIFIC REPOL ABNORMALITY, DIFFUSE LEADS : Confirmed by: Vick Carson MD 01-Dec-2018 11:49:25
[2018-12-01] MEDS ORDERED: ONDANSETRON HCL INJ/PF 4 MG/2 ML SDV IV PRN (11:58)
[2018-12-01] MEDS ORDERED: HYDRALAZINE HCL INJ/PF 20 MG/1 ML SDV IV PRN (11:58)
[2018-12-01] MEDS ORDERED: ACETAMINOPHEN 325 MG TABLET PO PRN (11:58)
[2018-12-01] MEDS ORDERED: ALBUTEROL SULFATE 0.083% NEB 2.5 MG/3 ML AMPUL NEB PRN (11:58)
--- NOTE | 2018-12-01 12:20 | PDOC H&P ---
History of Present Illness Admission Date/PCP: 12/01/18 11:58 BIJAL NICHOLS MD Patient complains of: shortness of breath History of Present Illness: NÉSTOR SOARES is a 58 year old male with a past medical history of hypertension, hyperlipidemia and seizure disorder, who presented to the ED complaining of shortness of breath that started this morning. Patient states that he was feeling fine last night and this morning when he woke up he went downstairs to get some water but felt some shortness of breath with some left-sided chest pain. States that he did not think much about it but then when he was climbing up the stairs again he felt the shortness of breath and chest pain again. States the chest pain was achy in nature on the left side, nonradiating and nothing made it better or worse. States that he got worried and his told him to come to the emergency room for evaluation. States that he has never had this type of pain in the past. States that his shortness of breath improved at rest but worsened with activity and exertion. States that he was in a good state of health in the last few weeks. He does admit to a history of DVT in the past-in 2016-when he had surgery for his prostate cancer and developed a right lower extremity DVT. States he was on anticoagulation with Lovenox for about 8 months. States that in the last 3 months he has had no changes in lifestyle or diet. He did take a flight to [place] in about July 2018 when his mother . He does admit to being sedentary in his lifestyle which has progressively gotten worse in the last 2 months. States he sits on his home off his computer for 8-10 hours a day. He denies any family history of blood clots or blood-related cancers that he knows of. He denies any recent trips on flights or planes within the last 6 weeks. States that he follows up with urologist regarding his prostate cancer and has been told that he is in remission. He states that at this time his chest pain is about 1 out of 5 and he really does not have any shortness of breath. In the ED he had a CTA of the chest which showed pulmonary embolus bilaterally. Past Medical History Cardiac Medical History: Reports: Hyperlipidema, Hypertension Neurological Medical History: Reports: Seizures Social History Smoking Status: Former Smoker - Advance Directive Resuscitation Status: Full Code Family History Family History: Reviewed & Not Pertinent Parental Family History Reviewed: Yes Children Family History Reviewed: Unknown Sibling(s) Family History Reviewed.: Yes Medication/Allergy Allergies/Adverse Reactions: No Known Allergies Allergy (Verified 12/01/18 08:51) Review of Systems All systems: reviewed and no additional remarkable complaints except as stated Constitutional: ABSENT: chills, fever(s) Nose, Mouth, and Throat: ABSENT: headache(s) Cardiovascular: PRESENT: chest pain. ABSENT: edema Respiratory: PRESENT: dyspnea Gastrointestinal: ABSENT: abdominal pain, nausea, vomiting Neurological: ABSENT: focal weakness, numbness, syncope, tingling Endocrine: ABSENT: polyphagia, polyuria Physical Exam Vital Signs: Temp Pulse Resp BP Pulse Ox 97.5 F 109 H 16 141/103 H 96 12/01/18 09:02 12/01/18 09:02 12/01/18 11:10 12/01/18 11:10 12/01/18 11:10 Intake & Output 11/30/18 12/01/18 12/02/18 06:59 06:59 06:59 Weight 199 lb 8.293 oz General appearance: PRESENT: no acute distress Head exam: PRESENT: atraumatic, normocephalic Eye exam: PRESENT: EOMI, PERRLA. ABSENT: conjunctival injection, scleral icterus Ear exam: PRESENT: normal external ear exam Mouth exam: PRESENT: moist, tongue midline Neck exam: ABSENT: tracheal deviation Respiratory exam: PRESENT: clear to auscultation florian, symmetrical, other - Some conversational dyspnea noted Cardiovascular exam: PRESENT: +S1, +S2 Pulses: PRESENT: +2 pedal pulses bilateral GI/Abdominal exam: PRESENT: normal bowel sounds, soft. ABSENT: tenderness Extremities exam: ABSENT: pedal edema, +1 edema, +2 edema Neurological exam: PRESENT: alert, awake, oriented to person, oriented to place, oriented to time, oriented to situation, CN II-XII grossly intact Skin exam: PRESENT: dry, warm Results Laboratory Results: 12/01/18 09:40 12/01/18 09:40 12/01/18 12/01/18 12/01/18 09:40 09:40 10:48 WBC 9.9 RBC 6.44 H Hgb 17.1 H Hct 50.8 MCV 79 L MCH 26.6 L MCHC 33.7 RDW 13.6 Plt Count 175 Seg Neutrophils % 64.1 Lymphocytes % 25.7 Monocytes % 7.7 Eosinophils % 1.9 Basophils % 0.6 Absolute Neutrophils 6.3 Absolute Lymphocytes 2.5 Absolute Monocytes 0.8 Absolute Eosinophils 0.2 Absolute Basophils 0.1 Sodium Cancelled Potassium Cancelled Chloride Cancelled Carbon Dioxide Cancelled Anion Gap Cancelled BUN Cancelled Creatinine Cancelled Est GFR ( Amer) Cancelled Est GFR (Non-Af Amer) Cancelled Glucose Cancelled Calcium Cancelled Total Bilirubin Cancelled AST Cancelled ALT Cancelled Alkaline Phosphatase Cancelled Total Protein Cancelled Albumin Cancelled Urine Color COLORLESS Urine Appearance CLEAR Urine pH 7.0 Ur Specific [place] 1.016 Urine Protein NEGATIVE Urine Glucose (UA) NEGATIVE Urine Ketones NEGATIVE Urine Blood SMALL H Urine Nitrite NEGATIVE Ur Leukocyte Esterase NEGATIVE Urine WBC (Auto) 0 Urine RBC (Auto) 1 12/01/18 09:40 Troponin I Cancelled NT-Pro-B Natriuret Pep Cancelled Impressions: Chest/Abdomen CTA 12/01/18 09:30 IMPRESSION: Significant pulmonary embolus burden including saddle embolus, bilateral main pulmonary arteries, lobar and segmental clot greatest within the bilateral lower lobes. Evidence of right heart strain with flattening of the interventricular septum. Pertinent findings on the imaging study reported as a CRITICAL RESULT to Dr. Zamora at10:14 on 12/01/2018. Category of Critical Result: Pulmonary embolus with evidence of right heart strain. Assessment and Plan - Diagnosis (1) Saddle embolus of pulmonary artery Is this a current diagnosis for this admission?: Yes Plan: Started on heparin drip-we will consult hematology for further recommendation and management. Most likely he will be started on a NOAC. We will get an echocardiogram today to evaluate for right heart strain. (2) Bilateral pulmonary embolism Is this a current diagnosis for this admission?: Yes Plan: See plan above (3) Essential hypertension Is this a current diagnosis for this admission?: Yes Plan: His meds have not been reconciled but I did speak to his about his blood pressure medicine-he is on fosinopril, Norvasc and metoprolol at home. He will me that he took all his meds this morning. We will add hydralazine as needed for better control. Once his blood pressure medications have been reconciled we will start him from tomorrow. (4) Hyperlipidemia Is this a current diagnosis for this admission?: Yes Plan: Continue with statin at home. (5) Seizure disorder Is this a current diagnosis for this admission?: Yes Plan: Continue with his Dilantin. Patient has not been reconciled yet and awaiting dosage. (6) Sedentary lifestyle Is this a current diagnosis for this admission?: Yes (7) History of DVT of lower extremity Is this a current diagnosis for this admission?: Yes Plan: In 2016 after his surgery for prostate cancer he did develop right lower extremity DVT and was on anticoagulation for 8 months. (8) History of prostate cancer Is this a current diagnosis for this admission?: Yes Plan: He tells me that he follows up with urologist every 6 months and that he is in remission at this time. - Time Anticipated discharge: Home Within: within 72 hours - Inpatient Certification Based on my medical assessment, after consideration of the patient's comorbidities, presenting symptoms, or acuity I expect that the services needed warrant INPATIENT care.: Yes I certify that my determination is in accordance with my understanding of Medicare's requirements for reasonable and necessary INPATIENT services [42 CFR 412.3e].: Yes Medical Necessity: Failure to Improve With Outpatient Therapy, Risk of Complication if Not Cared For in Hospital - Plan Summary Plan Summary: Admit to IMCU for bilateral pulmonary embolism/saddle embolism and start on heparin drip. Spent greater than 50 minutes in patient care today.
[2018-12-01] MEDS: HEPARIN SODIUM,PORCINE/D5W 25,000 UNIT/250 ML RTUINJ IV PRN (12:34)
[2018-12-01 13:02] LABS: ALANINE AMINOTRANSFERASE 26 U/L (21-72); ALBUMIN 4.6 g/dL (3.5-5.0); ALKALINE PHOSPHATASE 107 U/L (38-126); ANION GAP 8 (5-19); ASPARTATE AMINO TRANSFERASE 28 U/L (17-59); BILIRUBIN,DIRECT 0.3 mg/dL (0.0-0.4); BILIRUBIN,TOTAL 0.7 mg/dL (0.2-1.3); BLOOD UREA NITROGEN 15 mg/dL (7-20); CALCIUM 10.4 mg/dL (8.4-10.2); CARBON DIOXIDE 29 mmol/L (22-30); CHLORIDE 101 mmol/L (98-107); GLUCOSE 97 mg/dL (75-110); POTASSIUM 4.4 mmol/L (3.6-5.0); SODIUM 138.4 mmol/L (137-145); TOTAL PROTEIN 8.9 g/dL (6.3-8.2)
[2018-12-01 14:13] LABS: TROPONIN I 3.18 ng/mL
[2018-12-01] MEDS ORDERED: MORPHINE SULFATE 10 MG/ML INJ IV PRN (14:26)
[2018-12-01 16:37] LABS: CREATINE KINASE MB 3.62 ng/mL (<4.55); TROPONIN I 2.86 ng/mL
--- NOTE | 2018-12-01 16:54 | XCELERA REPORT ---
[address] [address] Transthoracic Echocardiogram Report Name: NÉSTOR SOARES Age: 58 yrs Gender: Male : 1960 Patient Status: Inpatient Patient Location: [address] [place], [place] [address]A Study Date: 12/01/2018 02:20 PM Height: 68 in Weight: 199 lb BSA: 2.0 m2 Procedure: A two-dimensional transthoracic echocardiogram with color flow and Doppler was performed. Study Quality: Fair. Reason For Study: saddle PULMONARY embolus History: saddle pulmonary embolus. Ordering Physician: JIMBO NOE Performed By: Rowena Luna Interpretation Summary The left ventricle is normal in size. There is normal left ventricular wall thickness. LV EF is 60% Left ventricular systolic function is normal. The left ventricular wall motion is normal. There is no thrombus. NO ASD,VSD,OR PFO. The right ventricle is mild to moderately dilated. The right ventricular systolic function is moderately reduced. The left atrial size is normal. There is no evidence of mitral valve prolapse. There is no vegetation seen on the mitral valve. There is no mitral valve stenosis. There is no mitral regurgitation noted. There is no aortic valvular vegetation. There is no aortic valve stenosis There is no LVOT obstruction. No aortic regurgitation is present. There is no tricuspid stenosis. There is a moderate to severe amount of tricuspid regurgitation There is moderate pulmonary hypertension by echo rvsp IS 57 TO 62 MM OF hG , WITH ra MEAN OF 5 TO 10. There is no pulmonic valvular stenosis. There is a trace amount of pulmonic regurgitation The aortic root is normal size. The inferior vena cava appeared normal and decreased > 50% with respiration (RAP 5-10 mmHg) There is no pericardial effusion. MMode/2D Measurements & Calculations RVDd: 3.9 cm LVIDd: 3.9 cm FS: 30.0 % Ao root diam: 2.9 cm IVSd: 0.98 cm LVIDs: 2.7 cm EDV(Teich): 66.6 ml Ao root area: 6.4 cm2 LVPWd: 0.95 cm ESV(Teich): 28.0 ml LA dimension: 3.2 cm EF(Teich): 57.9 % Doppler Measurements & Calculations MV E max olivia: MV P1/2t max olivia: Ao V2 max: LV V1 max P.5 cm/sec 68.3 cm/sec 104.4 cm/sec 2.8 mmHg MV A max olivia: MV P1/2t: 38.8 msec Ao max P.4 mmHg LV V1 max: 67.9 cm/sec MVA(P1/2t): 5.7 cm2 83.9 cm/sec MV E/A: 0.99 MV dec slope: 515.6 cm/sec2 MV dec time: 0.13 sec PI end-d olivia: TR max olivia: MV P1/2t-pr_phl: 120.5 cm/sec 359.7 cm/sec 38.8 msec TR max P.8 mmHg Left Ventricle The left ventricle is normal in size. There is normal left ventricular wall thickness. LV EF is 60%. Left ventricular systolic function is normal. LV diastolic function not assessed. The left ventricular wall motion is normal. There is no thrombus. NO ASD,VSD,OR PFO. Right Ventricle The right ventricle is mild to moderately dilated. The right ventricular systolic function is moderately reduced. Atria The right atrium is borderline dilated. The left atrial size is normal. Mitral Valve There is no evidence of mitral valve prolapse. There is no vegetation seen on the mitral valve. There is no mitral valve stenosis. There is no mitral regurgitation noted. Aortic Valve There is no aortic valvular vegetation. There is no aortic valve stenosis. There is no LVOT obstruction. No aortic regurgitation is present. Tricuspid Valve There is no tricuspid stenosis. There is a moderate to severe amount of tricuspid regurgitation. There is moderate pulmonary hypertension by echo. rvsp IS 57 TO 62 MM OF hG , WITH ra MEAN OF 5 TO 10. Pulmonic Valve There is no pulmonic valvular stenosis. There is a trace amount of pulmonic regurgitation. Great Vessels The aortic root is normal size. The inferior vena cava appeared normal and decreased > 50% with respiration (RAP 5-10 mmHg). Effusions There is no pericardial effusion. : JIMBO NOE > Alecia Doan
--- NOTE | 2018-12-01 18:51 | EKG REPORT ---
SEVERITY:- ABNORMAL ECG - SINUS TACHYCARDIA NONSPECIFIC ST-T CHANGES- INFERIOR LEADS : Confirmed by: Vick Carson MD 01-Dec-2018 18:50:47
[2018-12-01] MEDS: FAMOTIDINE 20 MG TABLET PO SCH (22:38)
[2018-12-02 05:21] LABS: ABSOLUTE BASOPHILS # (AUTO) 0.1 10^3/uL (0.0-0.2); ABSOLUTE EOSINOPHILS # (AUTO) 0.2 10^3/uL (0.0-0.6); ABSOLUTE LYMPHOCYTES (AUTO) 3.8 10^3/uL (0.5-4.7); ABSOLUTE MONOCYTES (AUTO) 0.9 10^3/uL (0.1-1.4); ABSOLUTE NEUT (AUTO) 8.3 10^3/uL (1.7-8.2); BASOPHILS % (AUTO) 0.4 % (0-2); EOSINOPHILS % (AUTO) 1.2 % (0-6); HEMATOCRIT 46.1 % (37.9-51.0); HEMOGLOBIN 15.4 g/dL (13.5-17.0); LYMPHOCYTES % (AUTO) 28.8 % (13-45); MEAN CORPUSCULAR HEMOGLOBIN 26.3 pg (27.0-33.4); MEAN CORPUSCULAR HGB CONC 33.5 g/dL (32.0-36.0); MEAN CORPUSCULAR VOLUME 79 fl (80-97); MONOCYTES % (AUTO) 7.1 % (3-13); PLATELET COUNT 164 10^3/uL (150-450); RED BLOOD COUNT 5.86 10^6/uL (4.35-5.55); RED CELL DISTRIBUTION WIDTH 13.2 % (11.5-14.0); SEGMENTED NEUTROPHILS % (AUTO) 62.5 % (42-78); TOTAL CELLS COUNTED % (AUTO) 100 %; WHITE BLOOD COUNT 13.3 10^3/uL (4.0-10.5)
[2018-12-02 05:43] LABS: ANION GAP 10 (5-19); BLOOD UREA NITROGEN 17 mg/dL (7-20); CALCIUM 9.6 mg/dL (8.4-10.2); CARBON DIOXIDE 22 mmol/L (22-30); CHLORIDE 105 mmol/L (98-107); GLUCOSE 103 mg/dL (75-110); POTASSIUM 4.2 mmol/L (3.6-5.0); SODIUM 137.3 mmol/L (137-145)
[2018-12-02] MEDS: HEPARIN SODIUM,PORCINE/D5W 25,000 UNIT/250 ML RTUINJ IV PRN (08:03)
[2018-12-02] MEDS: FAMOTIDINE 20 MG TABLET PO SCH ×2 (09:33→21:56)
[2018-12-02] MEDS ORDERED: FOSINOPRIL SODIUM 40 MG PO SCH (10:00)
[2018-12-02] MEDS: ASPIRIN 81 MG TABLET, ENT COATED PO SCH (10:29)
[2018-12-02] MEDS: PHENYTOIN SODIUM EXTENDED 100 MG CAPSULE PO SCH (10:29)
[2018-12-02] MEDS: METOPROLOL SUCCINATE 25 MG TAB.SR.24H PO SCH (10:29)
[2018-12-02] MEDS: AMLODIPINE BESYLATE 5 MG TABLET PO SCH (10:29)
--- NOTE | 2018-12-02 12:37 | PDOC CONSULTATION ---
Consultation Consult Date: 12/02/18 Attending physician:: JIMBO CHOWDARY Consult reason:: Recurrent PE History of Present Illness Admission Date/PCP: 12/01/18 11:58 BIJAL NICHOLS MD Patient complains of: SOB/CP History of Present Illness: NÉSTOR SOARES is a 58 year old male w/ just 24 hour h/o of rapid onset CP and SOB, no provoking events, seen here yesterday in ED, found on CTA to have b/l saddle pulmonary embolism w/ evidence of RV changes on CT. Pt did have echo changes in RV w/ dilation and compromised function. Pt initially was tachycardic, placed on heparin gtt. Dr. Chowdary did speak w/pulmonary medicine in [place]. As pt was hemodynamically stable, decided against TPA or transfer for more interventional approach. Over 12 hours tachycardia fully resolved, pt i s CP free, BP w/ no changes, he has gotten up several times to the bathroom assymptomatically w/ our any cardiovascular changes noted on continuous monitoring. Of notes, pt had provoked DVT/PE in 2017 post prostatectomy for early stage prostate ca. Was on 8m anticoag w/lovenox, taken off by PCP. Past Medical History Cardiac Medical History: Reports: DVT, Hyperlipidema, Hypertension, Pulmonary Embolism Neurological Medical History: Reports: Seizures Malignancy Medical History: Reports: Other - prostate ca Psychiatric Medical History: Denies: Depression Past Surgical History Past Surgical History: Reports: Other - prostatectomy Social History Information Source: Patient Smoking Status: Former Smoker Frequency of Alcohol Use: None Hx Recreational Drug Use: No Drugs: None Hx Prescription Drug Abuse: No - Advance Directive Resuscitation Status: Full Code Family History Family History: Reviewed & Not Pertinent Parental Family History Reviewed: Yes Children Family History Reviewed: Yes Sibling(s) Family History Reviewed.: Yes Medication/Allergy Home Medications: Amlodipine Besylate [Norvasc 5 mg Tablet] 5 mg PO DAILY 12/01/18 Aspirin [Adult Low Dose Aspirin EC] 81 mg PO DAILY 12/01/18 Atorvastatin Calcium [Lipitor 20 mg Tablet] 20 mg PO QHS 12/01/18 Fosinopril Sodium [Monopril] 40 mg PO DAILY 12/01/18 Metoprolol Succinate [Toprol Xl 25 mg Tab.sr] 25 mg PO DAILY 12/01/18 Phenytoin Sodium Extended [Dilantin 100 mg Capsule.er] 300 mg PO DAILY 12/01/18 Allergies/Adverse Reactions: No Known Allergies Allergy (Verified 12/01/18 08:51) Review of Systems Constitutional: ABSENT: chills, fever(s), headache(s), weight gain, weight loss Eyes: ABSENT: visual disturbances Ears: ABSENT: hearing changes Cardiovascular: ABSENT: chest pain, dyspnea on exertion, edema, orthropnea, palpitations Respiratory: ABSENT: cough, hemoptysis Gastrointestinal: ABSENT: abdominal pain, constipation, diarrhea, hematemesis, hematochezia, nausea, vomiting Genitourinary: ABSENT: dysuria, hematuria Musculoskeletal: ABSENT: joint swelling Integumentary: ABSENT: rash, wounds Neurological: ABSENT: abnormal gait, abnormal speech, confusion, dizziness, focal weakness, syncope Psychiatric: ABSENT: anxiety, depression, homidical ideation, suicidal ideation Endocrine: ABSENT: cold intolerance, heat intolerance, polydipsia, polyuria Hematologic/Lymphatic: ABSENT: easy bleeding, easy bruising Physical Exam Vital Signs: Temp Pulse Resp BP Pulse Ox 98.1 F 89 16 128/88 H 99 12/02/18 09:01 12/02/18 11:17 12/02/18 11:17 12/02/18 09:01 12/02/18 11:17 Intake & Output 12/01/18 12/02/18 12/03/18 06:59 06:59 06:59 Intake Total 1094 103 Output Total 50 Balance 1044 103 Weight 87.4 kg General appearance: PRESENT: no acute distress, well-developed, well-nourished Head exam: PRESENT: atraumatic, normocephalic Eye exam: PRESENT: conjunctiva pink, EOMI, PERRLA. ABSENT: scleral icterus Ear exam: PRESENT: normal external ear exam Mouth exam: PRESENT: moist, tongue midline Neck exam: ABSENT: carotid bruit, JVD, lymphadenopathy, thyromegaly Respiratory exam: PRESENT: clear to auscultation florian. ABSENT: rales, rhonchi, wheezes Cardiovascular exam: PRESENT: RRR. ABSENT: diastolic murmur, rubs, systolic murmur Pulses: PRESENT: normal dorsalis pedis pul Vascular exam: PRESENT: normal capillary refill GI/Abdominal exam: PRESENT: normal bowel sounds, soft. ABSENT: distended, guarding, mass, organolmegaly, rebound, tenderness Rectal exam: PRESENT: deferred Extremities exam: PRESENT: full ROM. ABSENT: calf tenderness, clubbing, pedal edema Neurological exam: PRESENT: alert, awake, oriented to person, oriented to place, oriented to time, oriented to situation, CN II-XII grossly intact. ABSENT: motor sensory deficit Psychiatric exam: PRESENT: appropriate affect, normal mood. ABSENT: homicidal ideation, suicidal ideation Skin exam: PRESENT: dry, intact, warm. ABSENT: cyanosis, rash Results Laboratory Results: 12/02/18 04:45 12/02/18 04:45 12/01/18 12/01/18 12/02/18 11:09 18:25 04:45 WBC 13.3 H RBC 5.86 H Hgb 15.4 Hct 46.1 MCV 79 L MCH 26.3 L MCHC 33.5 RDW 13.2 Plt Count 164 Seg Neutrophils % 62.5 Lymphocytes % 28.8 Monocytes % 7.1 Eosinophils % 1.2 Basophils % 0.4 Absolute Neutrophils 8.3 H Absolute Lymphocytes 3.8 Absolute Monocytes 0.9 Absolute Eosinophils 0.2 Absolute Basophils 0.1 Sodium 138.4 Potassium 4.4 Chloride 101 Carbon Dioxide 29 Anion Gap 8 BUN 15 Creatinine 1.14 Est GFR ( Amer) > 60 Est GFR (Non-Af Amer) > 60 Glucose 97 Calcium 10.4 H Total Bilirubin 0.7 AST 28 ALT 26 Alkaline Phosphatase 107 Total Protein 8.9 H Albumin 4.6 TSH Stool Occult Blood NEGATIVE 12/02/18 12/02/18 04:45 04:45 WBC RBC Hgb Hct MCV MCH MCHC RDW Plt Count Seg Neutrophils % Lymphocytes % Monocytes % Eosinophils % Basophils % Absolute Neutrophils Absolute Lymphocytes Absolute Monocytes Absolute Eosinophils Absolute Basophils Sodium 137.3 Potassium 4.2 Chloride 105 Carbon Dioxide 22 Anion Gap 10 BUN 17 Creatinine 0.97 Est GFR ( Amer) > 60 Est GFR (Non-Af Amer) > 60 Glucose 103 Calcium 9.6 Total Bilirubin AST ALT Alkaline Phosphatase Total Protein Albumin TSH 2.21 Stool Occult Blood 12/01/18 12/01/18 12/01/18 09:40 11:21 13:19 Creatine Kinase CK-MB (CK-2) Troponin I Cancelled Cancelled 3.180 NT-Pro-B Natriuret Pep Cancelled Cancelled 44 12/01/18 12/01/18 12/01/18 15:46 15:46 21:45 Creatine Kinase 157 CK-MB (CK-2) 3.62 Troponin I 2.860 1.600 NT-Pro-B Natriuret Pep Impressions: Chest/Abdomen CTA 12/01/18 09:30 IMPRESSION: Significant pulmonary embolus burden including saddle embolus, bilateral main pulmonary arteries, lobar and segmental clot greatest within the bilateral lower lobes. Evidence of right heart strain with flattening of the interventricular septum. Pertinent findings on the imaging study reported as a CRITICAL RESULT to Dr. Zamora at10:14 on 12/01/2018. Category of Critical Result: Pulmonary embolus with evidence of right heart stra in. Assessment & Plan - Diagnosis (1) Saddle embolus of pulmonary artery Qualifiers: Chronicity: acute Acute cor pulmonale presence: with acute cor pulmonale Qualified Code(s): I26.02 - Saddle embolus of pulmonary artery with acute cor pulmonale Is this a current diagnosis for this admission?: Yes Plan: Change of RV on echo but no current hemodynamic changes. I discussed w/ pulmonology in [place] also who agreed with continued heparin gtt but no need for more aggressive intervention with either TPA or interventional approach. He will need lifelong anticoag w/ Xarelto upon d/c. We will follow - Time Time Spent: Greater than 70 Minutes - Inpatient Certification Based on my medical assessment, after consideration of the patient's comorbidities, presenting symptoms, or acuity I expect that the services needed warrant INPATIENT care.: Yes I certify that my determination is in accordance with my understanding of Medicare's requirements for reasonable and necessary INPATIENT services [42 CFR 412.3e].: Yes Medical Necessity: Risk of Complication if Not Cared For in Hospital - need for heparin gtt
--- NOTE | 2018-12-02 15:26 | PDOC PROGRESS REPORT ---
Subjective Progress Note for:: 12/02/18 Subjective:: No adverse events overnight. No new complaints. Vital signs been stable. Oxygen saturations have been good on room air. He is been able to ambulate in the room without getting short of breath. No chest pain. Reason For Visit: PULMONARY EMBOLISM Physical Exam Vital Signs: Temp Pulse Resp BP Pulse Ox 98.1 F 83 16 128/88 H 99 12/02/18 09:01 12/02/18 14:00 12/02/18 11:17 12/02/18 09:01 12/02/18 11:17 Intake & Output 12/01/18 12/02/18 12/03/18 06:59 06:59 06:59 Intake Total 1094 103 Output Total 50 Balance 1044 103 Weight 87.4 kg General appearance: PRESENT: no acute distress, cooperative Respiratory exam: PRESENT: clear to auscultation florian, symmetrical, unlabored. ABSENT: accessory muscle use, crackles, prolonged expiratory phas, rhonchi, tachypnea, wheezes Cardiovascular exam: PRESENT: RRR, +S1, +S2 Pulses: PRESENT: normal carotid pulses Vascular exam: PRESENT: normal capillary refill GI/Abdominal exam: PRESENT: normal bowel sounds, soft. ABSENT: distended, guarding, rebound, tenderness Extremities exam: ABSENT: clubbing, pedal edema Musculoskeletal exam: PRESENT: normal inspection. ABSENT: deformity Neurological exam: PRESENT: alert, awake, oriented to person, oriented to place, oriented to time, oriented to situation Psychiatric exam: PRESENT: appropriate affect, normal mood Skin exam: PRESENT: dry, warm Results Laboratory Results: 12/02/18 04:45 12/02/18 04:45 12/01/18 12/02/18 12/02/18 18:25 04:45 04:45 WBC 13.3 H RBC 5.86 H Hgb 15.4 Hct 46.1 MCV 79 L MCH 26.3 L MCHC 33.5 RDW 13.2 Plt Count 164 Seg Neutrophils % 62.5 Lymphocytes % 28.8 Monocytes % 7.1 Eosinophils % 1.2 Basophils % 0.4 Absolute Neutrophils 8.3 H Absolute Lymphocytes 3.8 Absolute Monocytes 0.9 Absolute Eosinophils 0.2 Absolute Basophils 0.1 Sodium 137.3 Potassium 4.2 Chloride 105 Carbon Dioxide 22 Anion Gap 10 BUN 17 Creatinine 0.97 Est GFR ( Amer) > 60 Est GFR (Non-Af Amer) > 60 Glucose 103 Calcium 9.6 TSH Stool Occult Blood NEGATIVE 12/02/18 04:45 WBC RBC Hgb Hct MCV MCH MCHC RDW Plt Count Seg Neutrophils % Lymphocytes % Monocytes % Eosinophils % Basophils % Absolute Neutrophils Absolute Lymphocytes Absolute Monocytes Absolute Eosinophils Absolute Basophils Sodium Potassium Chloride Carbon Dioxide Anion Gap BUN Creatinine Est GFR ( Amer) Est GFR (Non-Af Amer) Glucose Calcium TSH 2.21 Stool Occult Blood 12/01/18 12/01/18 12/01/18 09:40 11:21 13:19 Creatine Kinase CK-MB (CK-2) Troponin I Cancelled Cancelled 3.180 NT-Pro-B Natriuret Pep Cancelled Cancelled 44 12/01/18 12/01/18 12/01/18 15:46 15:46 21:45 Creatine Kinase 157 CK-MB (CK-2) 3.62 Troponin I 2.860 1.600 NT-Pro-B Natriuret Pep Impressions: Chest/Abdomen CTA 12/01/18 09:30 IMPRESSION: Significant pulmonary embolus burden including saddle embolus, bilateral main pulmonary arteries, lobar and segmental clot greatest within the bilateral lower lobes. Evidence of right heart strain with flattening of the interventricular septum. Pertinent findings on the imaging study reported as a CRITICAL RESULT to Dr. Zamora at10:14 on 12/01/2018. Category of Critical Result: Pulmonary embolus with evidence of right heart strain. Assessment and Plan - Diagnosis (1) Saddle embolus of pulmonary artery Qualifiers: Chronicity: acute Acute cor pulmonale presence: with acute cor pulmonale Qualified Code(s): I26.02 - Saddle embolus of pulmonary artery with acute cor pulmonale Is this a current diagnosis for this admission?: Yes Plan: We will continue on the heparin drip for a few more days to allow the clot to stabilize, then will transition over to Eliquis. This is the second time in his life he has had a significant blood clot, so he will be on anticoagulation indefinitely. - Time Time Spent with patient: 25-34 minutes
[2018-12-02] MEDS: ATORVASTATIN CALCIUM 20 MG TABLET PO SCH (21:56)
[2018-12-03 05:05] LABS: HEMATOCRIT 44.8 % (37.9-51.0); HEMOGLOBIN 15.3 g/dL (13.5-17.0); MEAN CORPUSCULAR HEMOGLOBIN 26.9 pg (27.0-33.4); MEAN CORPUSCULAR HGB CONC 34.2 g/dL (32.0-36.0); MEAN CORPUSCULAR VOLUME 79 fl (80-97); PLATELET COUNT 159 10^3/uL (150-450); RED CELL DISTRIBUTION WIDTH 13.5 % (11.5-14.0); WHITE BLOOD COUNT 10.6 10^3/uL (4.0-10.5)
[2018-12-03] MEDS: HEPARIN SODIUM,PORCINE/D5W 25,000 UNIT/250 ML RTUINJ IV PRN (07:41)
--- NOTE | 2018-12-03 08:32 | PDOC PROGRESS REPORT ---
Subjective Progress Note for:: 12/03/18 Subjective:: Patient doing okay, still chest pain-free and able to get up and move around very easily. Has not yet walked the halls so are planning on that today. Cardiology did see patient, was not worried about the troponin elevation, felt that patient should continue on heparin drip for the next few days. Plan to continue over the next 72 hours, and then transition to Xarelto. Reason For Visit: PULMONARY EMBOLISM Physical Exam Vital Signs: Temp Pulse Resp BP Pulse Ox 98.0 F 66 16 135/86 H 99 12/03/18 03:28 12/03/18 07:00 12/03/18 03:28 12/03/18 03:28 12/03/18 03:28 Intake & Output 12/02/18 12/03/18 12/04/18 06:59 06:59 06:59 Intake Total 1094 1044 20 Output Total 50 1125 Balance 1044 -81 20 Weight 87.4 kg 87.5 kg General appearance: PRESENT: no acute distress, well-developed, well-nourished Head exam: PRESENT: atraumatic, normocephalic Eye exam: PRESENT: conjunctiva pink, EOMI, PERRLA. ABSENT: scleral icterus Ear exam: PRESENT: normal external ear exam Mouth exam: PRESENT: moist, tongue midline Neck exam: ABSENT: carotid bruit, JVD, lymphadenopathy, thyromegaly Respiratory exam: PRESENT: clear to auscultation florian. ABSENT: rales, rhonchi, wheezes Cardiovascular exam: PRESENT: RRR. ABSENT: diastolic murmur, rubs, systolic murmur Pulses: PRESENT: normal dorsalis pedis pul Vascular exam: PRESENT: normal capillary refill GI/Abdominal exam: PRESENT: normal bowel sounds, soft. ABSENT: distended, guarding, mass, organolmegaly, rebound, tenderness Rectal exam: PRESENT: deferred Extremities exam: PRESENT: full ROM. ABSENT: calf tenderness, clubbing, pedal edema Neurological exam: PRESENT: alert, awake, oriented to person, oriented to place, oriented to time, oriented to situation, CN II-XII grossly intact. ABSENT: motor sensory deficit Psychiatric exam: PRESENT: appropriate affect, normal mood. ABSENT: homicidal ideation, suicidal ideation Skin exam: PRESENT: dry, intact, warm. ABSENT: cyanosis, rash Results Laboratory Results: 12/03/18 04:31 12/02/18 04:45 12/03/18 04:31 WBC 10.6 H RBC 5.70 H Hgb 15.3 Hct 44.8 MCV 79 L MCH 26.9 L MCHC 34.2 RDW 13.5 Plt Count 159 12/01/18 12/01/18 12/01/18 09:40 11:21 13:19 Creatine Kinase CK-MB (CK-2) Troponin I Cancelled Cancelled 3.180 NT-Pro-B Natriuret Pep Cancelled Cancelled 44 12/01/18 12/01/18 12/01/18 15:46 15:46 21:45 Creatine Kinase 157 CK-MB (CK-2) 3.62 Troponin I 2.860 1.600 NT-Pro-B Natriuret Pep Impressions: Chest/Abdomen CTA 12/01/18 09:30 IMPRESSION: Significant pulmonary embolus burden including saddle embolus, bilateral main pulmonary arteries, lobar and segmental clot greatest within the bilateral lower lobes. Evidence of right heart strain with flattening of the interventricular septum. Pertinent findings on the imaging study reported as a CRITICAL RESULT to Dr. Zamora at10:14 on 12/01/2018. Category of Critical Result: Pulmonary embolus with evidence of right heart strain. Assessment & Plan - Diagnosis (1) Saddle embolus of pulmonary artery Qualifiers: Chronicity: acute Acute cor pulmonale presence: with acute cor pulmonale Qualified Code(s): I26.02 - Saddle embolus of pulmonary artery with acute cor pulmonale Is this a current diagnosis for this admission?: Yes Plan: No transfer plans at present, plan for continued heparin drip over the next 72 hours. Then by Thursday if everything is stable discharge home with Xarelto 15 mg twice daily for 21 days then 20 mg daily for life. - Time Time Spent with patient: 35 or more minutes - Inpatient Certification Medical Necessity: Risk of Complication if Not Cared For in Hospital - Need for continued heparin drip
[2018-12-03] MEDS: METOPROLOL SUCCINATE 25 MG TAB.SR.24H PO SCH (09:25)
[2018-12-03] MEDS: AMLODIPINE BESYLATE 5 MG TABLET PO SCH (09:25)
[2018-12-03] MEDS: FAMOTIDINE 20 MG TABLET PO SCH ×2 (09:25→21:10)
[2018-12-03] MEDS: ASPIRIN 81 MG TABLET, ENT COATED PO SCH (09:25)
[2018-12-03] MEDS: PHENYTOIN SODIUM EXTENDED 100 MG CAPSULE PO SCH (09:25)
[2018-12-03] MEDS: ENALAPRIL MALEATE 10 MG TABLET PO SCH (09:26)
[2018-12-03] MEDS: NITROGLYCERIN 0.4 MG/TAB 25 TAB/BOTTLE SL PRN ×3 (14:01→14:11)
--- NOTE | 2018-12-03 14:05 | PDOC PROGRESS REPORT ---
Subjective Progress Note for:: 12/03/18 Subjective:: No adverse events overnight. No new complaints this morning whenever I saw him. Vital signs been stable. Oxygen saturations have been excellent on room air. He got up and walked around in the hallway for a little bit and seemed to do fine but afterwards was complaining of some chest pain in the middle of his chest. Were going to see if it is relieved by nitroglycerin, but he has been on heparin drip continuously. We are also checking an EKG and a troponin, troponin was elevated whenever he came in but anticipate that this is mostly some discomfort relating to his resolving PE with cardiac ischemia being less likely. Reason For Visit: PULMONARY EMBOLISM Physical Exam Vital Signs: Temp Pulse Resp BP Pulse Ox 97.6 F 85 18 121/86 H 100 12/03/18 11:13 12/03/18 11:13 12/03/18 11:13 12/03/18 11:13 12/03/18 11:13 Intake & Output 12/02/18 12/03/18 12/04/18 06:59 06:59 06:59 Intake Total 1094 1044 20 Output Total 50 1125 Balance 1044 -81 20 Weight 87.4 kg 87.5 kg General appearance: PRESENT: no acute distress, cooperative Respiratory exam: PRESENT: clear to auscultation florian, symmetrical, unlabored. ABSENT: accessory muscle use, crackles, prolonged expiratory phas, rhonchi, tachypnea, wheezes Cardiovascular exam: PRESENT: RRR, +S1, +S2 Pulses: PRESENT: normal carotid pulses Vascular exam: PRESENT: normal capillary refill GI/Abdominal exam: PRESENT: normal bowel sounds, soft. ABSENT: distended, guarding, rebound, tenderness Extremities exam: ABSENT: clubbing, pedal edema Musculoskeletal exam: PRESENT: normal inspection. ABSENT: deformity Neurological exam: PRESENT: alert, awake, oriented to person, oriented to place, oriented to time, oriented to situation Psychiatric exam: PRESENT: appropriate affect, normal mood Skin exam: PRESENT: dry, warm Results Laboratory Results: 12/03/18 04:31 12/02/18 04:45 12/03/18 04:31 WBC 10.6 H RBC 5.70 H Hgb 15.3 Hct 44.8 MCV 79 L MCH 26.9 L MCHC 34.2 RDW 13.5 Plt Count 159 12/01/18 12/01/18 12/01/18 09:40 11:21 13:19 Creatine Kinase CK-MB (CK-2) Troponin I Cancelled Cancelled 3.180 NT-Pro-B Natriuret Pep Cancelled Cancelled 44 12/01/18 12/01/18 12/01/18 15:46 15:46 21:45 Creatine Kinase 157 CK-MB (CK-2) 3.62 Troponin I 2.860 1.600 NT-Pro-B Natriuret Pep Impressions: Chest/Abdomen CTA 12/01/18 09:30 IMPRESSION: Significant pulmonary embolus burden including saddle embolus, bilateral main pulmonary arteries, lobar and segmental clot greatest within the bilateral lower lobes. Evidence of right heart strain with flattening of the interventricular septum. Pertinent findings on the imaging study reported as a CRITICAL RESULT to Dr. Zamora at10:14 on 12/01/2018. Category of Critical Result: Pulmonary embolus with evidence of right heart strain. Assessment and Plan - Diagnosis (1) Saddle embolus of pulmonary artery Qualifiers: Chronicity: acute Acute cor pulmonale presence: with acute cor pulmonale Qualified Code(s): I26.02 - Saddle embolus of pulmonary artery with acute cor pulmonale Is this a current diagnosis for this admission?: Yes Plan: We will leave him on a heparin drip for a few more days. Plan will be to transition him over to Eliquis or Xarelto indefinitely. Investigating his complaint of chest pain as noted above, but think it is unlikely to be acute cardiac ischemia. Small pulmonary infarct is a possibility, but he is already on anticoagulation. - Time Time Spent with patient: 25-34 minutes
[2018-12-03] MEDS ORDERED: MORPHINE SULFATE 10 MG/ML INJ IV PRN (14:48)
[2018-12-03 15:31] LABS: CREATINE KINASE MB < 0.22 ng/mL (<4.55); TROPONIN I 0.118 ng/mL
--- NOTE | 2018-12-03 18:37 | EKG REPORT ---
SEVERITY:- BORDERLINE ECG - SINUS RHYTHM BORDERLINE PROLONGED QT INTERVAL : Confirmed by: Vick Carson MD 03-Dec-2018 18:37:12
[2018-12-03] MEDS: ATORVASTATIN CALCIUM 20 MG TABLET PO SCH (21:10)
[2018-12-04] MEDS: HEPARIN SOD (PORCINE) 1,000 UNIT/ML 10 ML VIAL IV PRN (06:51)
[2018-12-04] MEDS: HEPARIN SODIUM,PORCINE/D5W 25,000 UNIT/250 ML RTUINJ IV PRN (06:52)
[2018-12-04] MEDS: PHENYTOIN SODIUM EXTENDED 100 MG CAPSULE PO SCH (10:38)
[2018-12-04] MEDS: AMLODIPINE BESYLATE 5 MG TABLET PO SCH (10:38)
[2018-12-04] MEDS: METOPROLOL SUCCINATE 25 MG TAB.SR.24H PO SCH (10:38)
[2018-12-04] MEDS: ASPIRIN 81 MG TABLET, ENT COATED PO SCH (10:38)
[2018-12-04] MEDS: FAMOTIDINE 20 MG TABLET PO SCH ×2 (10:38→21:05)
[2018-12-04] MEDS: ENALAPRIL MALEATE 10 MG TABLET PO SCH (10:39)
--- NOTE | 2018-12-04 14:31 | PDOC PROGRESS REPORT ---
Subjective Progress Note for:: 12/04/18 Subjective:: Patient had increased chest pain after walking yesterday. Today, he is feeling better. ROS: No constipation. No dyspnea. Reason For Visit: PULMONARY EMBOLISM Physical Exam Vital Signs: Temp Pulse Resp BP Pulse Ox 98.4 F 76 17 136/92 H 100 12/04/18 11:05 12/04/18 11:05 12/04/18 11:05 12/04/18 11:05 12/04/18 11:05 Intake & Output 12/03/18 12/04/18 12/05/18 06:59 06:59 06:59 Intake Total 1044 1719 354 Output Total 1125 1850 450 Balance -81 -131 -96 Weight 87.5 kg 86.9 kg General appearance: PRESENT: well-developed, well-nourished Head exam: PRESENT: normocephalic Respiratory exam: PRESENT: clear to auscultation florian, unlabored Cardiovascular exam: PRESENT: RRR GI/Abdominal exam: PRESENT: soft. ABSENT: tenderness Extremities exam: ABSENT: pedal edema Skin exam: PRESENT: normal color Results Laboratory Results: 12/03/18 04:31 12/02/18 04:45 12/03/18 11:40 Stool Occult Blood NEGATIVE 12/01/18 12/01/18 12/01/18 09:40 11:21 13:19 Creatine Kinase CK-MB (CK-2) Troponin I Cancelled Cancelled 3.180 NT-Pro-B Natriuret Pep Cancelled Cancelled 44 12/01/18 12/01/18 12/01/18 15:46 15:46 21:45 Creatine Kinase 157 CK-MB (CK-2) 3.62 Troponin I 2.860 1.600 NT-Pro-B Natriuret Pep 12/03/18 12/03/18 14:33 14:33 Creatine Kinase 88 CK-MB (CK-2) < 0.22 Troponin I 0.118 NT-Pro-B Natriuret Pep Impressions: Chest/Abdomen CTA 12/01/18 09:30 IMPRESSION: Significant pulmonary embolus burden including saddle embolus, bilateral main pulmonary arteries, lobar and segmental clot greatest within the bilateral lower lobes. Evidence of right heart strain with flattening of the interventricular septum. Pertinent findings on the imaging study reported as a CRITICAL RESULT to Dr. Zamora at10:14 on 12/01/2018. Category of Critical Result: Pulmonary embolus with evidence of right heart strain. Assessment & Plan - Diagnosis (1) Bilateral pulmonary embolism Is this a current diagnosis for this admission?: Yes Plan: Agree with plans for heparin until Xarelto started in 48 hours. I will check for antiphospholipid Ab. This would change choice of therapy. Since this is his second thrombosis, lifelong anticoagulation would be recommended. I will discuss further genetic work-up as well as search for possible recurrent prostate cancer as outpatient. I will check PSA, if not done recently. (2) Pain Is this a current diagnosis for this admission?: Yes Plan: due to the PE. Currently pain meds have been adequate. Will continue for now. - Plan Summary Plan Summary: Will continue to follow.
--- NOTE | 2018-12-04 17:18 | PDOC PROGRESS REPORT ---
Subjective Progress Note for:: 12/04/18 Subjective:: NÉSTOR SOARES is a 58 year old male with a past medical history of hypertension, hyperlipidemia, seizure disorder and DVT who presented to the ED complaining of shortness of breath. CTA chest reveals significant pulmonary embolus burden including saddle embolus bilateral main pulmonary arteries, lobar and segmental clot greatest in the bilateral lower lobes. Evidence of right heart strain with flattening of the intraventricular septum. Patient was admitted to hospitalist service for PE, placed on heparin gtt. Patient was seen this morning on rounds, he is resting comfortably in bed with at bedside. Patient has no complaints or concerns this morning. Physical exam is completely benign. He was updated on the plan of care that he will remain inpatient until Thursday, when he will be discharged home on Xarelto. Reason For Visit: PULMONARY EMBOLISM Physical Exam Vital Signs: Temp Pulse Resp BP Pulse Ox 98.4 F 85 16 134/94 H 98 12/04/18 15:18 12/04/18 15:18 12/04/18 15:18 12/04/18 15:18 12/04/18 15:18 Intake & Output 12/03/18 12/04/18 12/05/18 06:59 06:59 06:59 Intake Total 1044 1719 667 Output Total 1125 1850 1050 Balance -81 -131 -383 Weight 87.5 kg 86.9 kg General appearance: PRESENT: no acute distress, well-developed, well-nourished Head exam: PRESENT: atraumatic, normocephalic Eye exam: PRESENT: conjunctiva pink, EOMI, PERRLA. ABSENT: scleral icterus Ear exam: PRESENT: normal external ear exam Mouth exam: PRESENT: moist, tongue midline Neck exam: ABSENT: carotid bruit, JVD, lymphadenopathy, thyromegaly Respiratory exam: PRESENT: clear to auscultation florian. ABSENT: rales, rhonchi, wheezes Cardiovascular exam: PRESENT: RRR. ABSENT: diastolic murmur, rubs, systolic murmur Pulses: PRESENT: normal dorsalis pedis pul Vascular exam: PRESENT: normal capillary refill GI/Abdominal exam: PRESENT: normal bowel sounds, soft. ABSENT: distended, guarding, mass, organolmegaly, rebound, tenderness Rectal exam: PRESENT: deferred Extremities exam: PRESENT: full ROM. ABSENT: calf tenderness, clubbing, pedal edema Neurological exam: PRESENT: alert, awake, oriented to person, oriented to place, oriented to time, oriented to situation Psychiatric exam: PRESENT: appropriate affect, normal mood Skin exam: PRESENT: dry, intact, warm. ABSENT: cyanosis, rash Results Laboratory Results: 12/03/18 04:31 12/02/18 04:45 12/03/18 11:40 Stool Occult Blood NEGATIVE 12/01/18 12/01/18 12/01/18 09:40 11:21 13:19 Creatine Kinase CK-MB (CK-2) Troponin I Cancelled Cancelled 3.180 NT-Pro-B Natriuret Pep Cancelled Cancelled 44 12/01/18 12/01/18 12/01/18 15:46 15:46 21:45 Creatine Kinase 157 CK-MB (CK-2) 3.62 Troponin I 2.860 1.600 NT-Pro-B Natriuret Pep 12/03/18 12/03/18 14:33 14:33 Creatine Kinase 88 CK-MB (CK-2) < 0.22 Troponin I 0.118 NT-Pro-B Natriuret Pep Impressions: Chest/Abdomen CTA 12/01/18 09:30 IMPRESSION: Significant pulmonary embolus burden including saddle embolus, bilateral main pulmonary arteries, lobar and segmental clot greatest within the bilateral lower lobes. Evidence of right heart strain with flattening of the interventricular septum. Pertinent findings on the imaging study reported as a CRITICAL RESULT to Dr. Zamora at10:14 on 12/01/2018. Category of Critical Result: Pulmonary embolus with evidence of right heart strain. Status: Imported from PACS Assessment and Plan - Diagnosis (1) Bilateral pulmonary embolism Is this a current diagnosis for this admission?: Yes Plan: Bilateral PE seen on CT Echocardiogram shows moderate pulmonary hypertension, moderate to severe TR, LVEF 60% Continue heparin gtt Plan to transition to Xarelto PO on Thursday (2) Essential hypertension Is this a current diagnosis for this admission?: Yes Plan: Continue home dose metoprolol, Norvasc and ASA (3) Hyperlipidemia Is this a current diagnosis for this admission?: Yes Plan: Continue home dose atorvastatin - Time Time Spent with patient: 15-24 minutes Medications reviewed and adjusted accordingly: Yes Anticipated discharge: Home Within: within 48 hours - Inpatient Certification Based on my medical assessment, after consideration of the patient's comorbidities, presenting symptoms, or acuity I expect that the services needed warrant INPATIENT care.: Yes I certify that my determination is in accordance with my understanding of Medicare's requirements for reasonable and necessary INPATIENT services [42 CFR 412.3e].: Yes Medical Necessity: Risk of Complication if Not Cared For in Hospital
[2018-12-04] MEDS: ATORVASTATIN CALCIUM 20 MG TABLET PO SCH (21:05)
[2018-12-05] MEDS: HEPARIN SOD (PORCINE) 1,000 UNIT/ML 10 ML VIAL IV PRN (06:41)
[2018-12-05] MEDS: HEPARIN SODIUM,PORCINE/D5W 25,000 UNIT/250 ML RTUINJ IV PRN (06:42)
[2018-12-05] MEDS: ASPIRIN 81 MG TABLET, ENT COATED PO SCH (09:09)
[2018-12-05] MEDS: ENALAPRIL MALEATE 10 MG TABLET PO SCH (09:09)
[2018-12-05] MEDS: FAMOTIDINE 20 MG TABLET PO SCH ×2 (09:09→22:03)
[2018-12-05] MEDS: METOPROLOL SUCCINATE 25 MG TAB.SR.24H PO SCH (09:09)
[2018-12-05] MEDS: AMLODIPINE BESYLATE 5 MG TABLET PO SCH (09:09)
[2018-12-05] MEDS: PHENYTOIN SODIUM EXTENDED 100 MG CAPSULE PO SCH (09:10)
--- NOTE | 2018-12-05 17:07 | PDOC PROGRESS REPORT ---
Subjective Progress Note for:: 12/05/18 Subjective:: NÉSTOR SOARES is a 58 year old male with a past medical history of hypertension, hyperlipidemia, seizure disorder and DVT who presented to the ED complaining of shortness of breath. CTA chest reveals significant pulmonary embolus burden including saddle embolus bilateral main pulmonary arteries, lobar and segmental clot greatest in the bilateral lower lobes. Evidence of right heart strain with flattening of the intraventricular septum. Patient was admitted to hospitalist service for PE, placed on heparin gtt. Patient was seen this morning on rounds, he is resting comfortably in bed with at bedside. Patient has no complaints or concerns this morning. Physical exam is completely benign. Patient has ambulated around the unit without difficulty and no recurrence of chest pain. Remain inpatient until Thursday, when he will be discharged home on Xarelto. No change to current treatment plan. Reason For Visit: PULMONARY EMBOLISM Physical Exam Vital Signs: Temp Pulse Resp BP Pulse Ox 98.1 F 74 16 130/86 H 96 12/05/18 11:14 12/05/18 14:00 12/05/18 11:14 12/05/18 11:14 12/05/18 11:14 Intake & Output 12/04/18 12/05/18 12/06/18 06:59 06:59 06:59 Intake Total 1719 1374 298 Output Total 1850 2400 675 Balance -131 -1026 -377 Weight 86.9 kg 89.2 kg General appearance: PRESENT: no acute distress, well-developed, well-nourished Head exam: PRESENT: atraumatic, normocephalic Eye exam: PRESENT: conjunctiva pink, EOMI, PERRLA. ABSENT: scleral icterus Ear exam: PRESENT: normal external ear exam Mouth exam: PRESENT: moist, tongue midline Neck exam: ABSENT: carotid bruit, JVD, lymphadenopathy, thyromegaly Respiratory exam: PRESENT: clear to auscultation florian. ABSENT: rales, rhonchi, wheezes Cardiovascular exam: PRESENT: RRR. ABSENT: diastolic murmur, rubs, systolic murmur Pulses: PRESENT: normal radial pulses, normal dorsalis pedis pul Vascular exam: PRESENT: normal capillary refill GI/Abdominal exam: PRESENT: normal bowel sounds, soft. ABSENT: distended, guarding, mass, organolmegaly, rebound, tenderness Rectal exam: PRESENT: deferred Extremities exam: PRESENT: full ROM. ABSENT: calf tenderness, clubbing, pedal edema Neurological exam: PRESENT: alert, awake, oriented to person, oriented to place, oriented to time, oriented to situation Psychiatric exam: PRESENT: appropriate affect, normal mood Skin exam: PRESENT: dry, intact, warm. ABSENT: cyanosis, rash Results Laboratory Results: 12/03/18 04:31 12/02/18 04:45 12/04/18 12:47 Prostate Specific Ag < 0.060 12/01/18 12/01/18 12/01/18 09:40 11:21 13:19 Creatine Kinase CK-MB (CK-2) Troponin I Cancelled Cancelled 3.180 NT-Pro-B Natriuret Pep Cancelled Cancelled 44 12/01/18 12/01/18 12/01/18 15:46 15:46 21:45 Creatine Kinase 157 CK-MB (CK-2) 3.62 Troponin I 2.860 1.600 NT-Pro-B Natriuret Pep 12/03/18 12/03/18 14:33 14:33 Creatine Kinase 88 CK-MB (CK-2) < 0.22 Troponin I 0.118 NT-Pro-B Natriuret Pep Impressions: Chest/Abdomen CTA 12/01/18 09:30 IMPRESSION: Significant pulmonary embolus burden including saddle embolus, bilateral main pulmonary arteries, lobar and segmental clot greatest within the bilateral lower lobes. Evidence of right heart strain with flattening of the interventricular septum. Pertinent findings on the imaging study reported as a CRITICAL RESULT to Dr. Zamora at10:14 on 12/01/2018. Category of Critical Result: Pulmonary embolus with evidence of right heart strain. Status: Imported from PACS Assessment and Plan - Diagnosis (1) Bilateral pulmonary embolism Is this a current diagnosis for this admission?: Yes Plan: Bilateral PE seen on CT Echocardiogram shows moderate pulmonary hypertension, moderate to severe TR, LVEF 60% Continue heparin gtt Plan to transition to Xarelto PO on Thursday (2) Essential hypertension Is this a current diagnosis for this admission?: Yes Plan: Continue home dose metoprolol, Norvasc and ASA (3) Hyperlipidemia Is this a current diagnosis for this admission?: Yes Plan: Continue home dose atorvastatin - Time Time Spent with patient: 15-24 minutes Medications reviewed and adjusted accordingly: Yes Anticipated discharge: Home Within: within 24 hours - Inpatient Certification Based on my medical assessment, after consideration of the patient's comorbidities, presenting symptoms, or acuity I expect that the services needed warrant INPATIENT care.: Yes I certify that my determination is in accordance with my understanding of Medicare's requirements for reasonable and necessary INPATIENT services [42 CFR 412.3e].: Yes Medical Necessity: Need For Continuous Telemetry Monitoring, Risk of Complication if Not Cared For in Hospital - Plan Summary Plan Summary: DISCHARGE HOME ON XARELTO
[2018-12-05] MEDS: ATORVASTATIN CALCIUM 20 MG TABLET PO SCH (22:03)
[2018-12-06 05:52] LABS: HEMOGLOBIN 14.4 g/dL (13.5-17.0); MEAN CORPUSCULAR HEMOGLOBIN 26.5 pg (27.0-33.4); MEAN CORPUSCULAR HGB CONC 33.5 g/dL (32.0-36.0); MEAN CORPUSCULAR VOLUME 79 fl (80-97); PLATELET COUNT 168 10^3/uL (150-450); RED BLOOD COUNT 5.44 10^6/uL (4.35-5.55); RED CELL DISTRIBUTION WIDTH 13.3 % (11.5-14.0); WHITE BLOOD COUNT 7.6 10^3/uL (4.0-10.5)
[2018-12-06] MEDS: HEPARIN SODIUM,PORCINE/D5W 25,000 UNIT/250 ML RTUINJ IV PRN (07:12)
--- NOTE | 2018-12-06 07:57 | PDOC PROGRESS REPORT ---
Subjective Progress Note for:: 12/06/18 Subjective:: Patient feeling well. No further chest pain. No evidence of bleeding. Anxious to go home. Reason For Visit: PULMONARY EMBOLISM Physical Exam Vital Signs: Temp Pulse Resp BP Pulse Ox 97.9 F 60 16 113/78 97 12/05/18 19:30 12/06/18 02:00 12/05/18 19:30 12/05/18 19:30 12/05/18 19:30 Intake & Output 12/05/18 12/06/18 12/07/18 06:59 06:59 06:59 Intake Total 1374 840 Output Total 2400 8255 Balance -1026 -1235 Weight 89.2 kg 193.3 kg General appearance: PRESENT: well-developed, well-nourished Head exam: PRESENT: normocephalic Respiratory exam: PRESENT: unlabored Extremities exam: ABSENT: pedal edema Neurological exam: PRESENT: alert, awake Psychiatric exam: PRESENT: appropriate affect Skin exam: PRESENT: normal color Results Laboratory Results: 12/06/18 05:30 12/02/18 04:45 12/04/18 12/06/18 12:47 05:30 WBC 7.6 RBC 5.44 Hgb 14.4 Hct 43.0 MCV 79 L MCH 26.5 L MCHC 33.5 RDW 13.3 Plt Count 168 Prostate Specific Ag < 0.060 12/01/18 12/01/18 12/01/18 09:40 11:21 13:19 Creatine Kinase CK-MB (CK-2) Troponin I Cancelled Cancelled 3.180 NT-Pro-B Natriuret Pep Cancelled Cancelled 44 12/01/18 12/01/18 12/01/18 15:46 15:46 21:45 Creatine Kinase 157 CK-MB (CK-2) 3.62 Troponin I 2.860 1.600 NT-Pro-B Natriuret Pep 12/03/18 12/03/18 14:33 14:33 Creatine Kinase 88 CK-MB (CK-2) < 0.22 Troponin I 0.118 NT-Pro-B Natriuret Pep Impressions: Chest/Abdomen CTA 12/01/18 09:30 IMPRESSION: Significant pulmonary embolus burden including saddle embolus, bilateral main pulmonary arteries, lobar and segmental clot greatest within the bilateral lower lobes. Evidence of right heart strain with flattening of the interventricular septum. Pertinent findings on the imaging study reported as a CRITICAL RESULT to Dr. Zamora at10:14 on 12/01/2018. Category of Critical Result: Pulmonary embolus with evidence of right heart strain. Assessment & Plan - Diagnosis (1) Bilateral pulmonary embolism Is this a current diagnosis for this admission?: Yes Plan: Plan to change from IV heparin to Xaralto today in poreparation for discharge. I will see him in my office in 2 weeks. (2) Pain Is this a current diagnosis for this admission?: Yes Plan: Appears to be resolved. We discussed the fact that he may still have chest pains off an on for several weeks. - Plan Summary Plan Summary: His PSA was very low. Unclear as to cause of this blood clot. Await further lab results.
[2018-12-06 08:34] VITALS: BP 114/88
[2018-12-06] MEDS: METOPROLOL SUCCINATE 25 MG TAB.SR.24H PO SCH (09:16)
[2018-12-06] MEDS: FAMOTIDINE 20 MG TABLET PO SCH (09:16)
[2018-12-06] MEDS: AMLODIPINE BESYLATE 5 MG TABLET PO SCH (09:16)
[2018-12-06] MEDS: ENALAPRIL MALEATE 10 MG TABLET PO SCH (09:16)
[2018-12-06] MEDS: ASPIRIN 81 MG TABLET, ENT COATED PO SCH (09:16)
[2018-12-06] MEDS: PHENYTOIN SODIUM EXTENDED 100 MG CAPSULE PO SCH (09:16)
[2018-12-06] MEDS ORDERED: RIVAROXABAN 15 MG TABLET PO ONE (09:30)
--- NOTE | 2018-12-10 10:05 | PDOC DISCHARGE SUMMARY ---
General - Admit/Disc Date/PCP Admission Date/Primary Care Provider: 12/01/18 11:58 BIJAL NICHOLS MD Discharge Date: 12/06/18 - Discharge Diagnosis (1) Bilateral pulmonary embolism Is this a current diagnosis for this admission?: Yes (2) Essential hypertension Is this a current diagnosis for this admission?: Yes (3) Hyperlipidemia Is this a current diagnosis for this admission?: Yes - Additional Information Resuscitation Status: Full Code Discharge Diet: As Tolerated Discharge Activity: Activity As Tolerated Prescriptions: Rivaroxaban [Xarelto 15 mg Tablet] 15 mg PO BID 21 Days #42 tablet Rivaroxaban [Xarelto] 20 mg PO DAILY #30 tablet Home Medications: Amlodipine Besylate [Norvasc 5 mg Tablet] 5 mg PO DAILY 12/01/18 Aspirin [Adult Low Dose Aspirin EC] 81 mg PO DAILY 12/01/18 Atorvastatin Calcium [Lipitor 20 mg Tablet] 20 mg PO QHS 12/01/18 Fosinopril Sodium [Monopril] 40 mg PO DAILY 12/01/18 Metoprolol Succinate [Toprol Xl 25 mg Tab.sr] 25 mg PO DAILY 12/01/18 Phenytoin Sodium Extended [Dilantin 100 mg Capsule.er] 300 mg PO DAILY 12/01/18 Rivaroxaban [Xarelto 15 mg Tablet] 15 mg PO BID 21 Days #42 tablet 12/06/18 Rivaroxaban [Xarelto] 20 mg PO DAILY #30 tablet 12/06/18 History of Present Illness History of Present Illness: NÉSTOR SOARES is a 58 year old male with a past medical history of hypertension, hyperlipidemia and seizure disorder, who presented to the ED complaining of shortness of breath that started this morning. Patient states that he was feeling fine last night and this morning when he woke up he went downstairs to get some water but felt some shortness of breath with some left-sided chest pa in. States that he did not think much about it but then when he was climbing up the stairs again he felt the shortness of breath and chest pain again. States the chest pain was achy in nature on the left side, nonradiating and nothing made it better or worse. States that he got worried and his told him to come to the emergency room for evaluation. States that he has never had this type of pain in the past. States that his shortness of breath improved at rest but worsened with activity and exertion. States that he was in a good state of health in the last few weeks. He does admit to a history of DVT in the past-in 2016-when he had surgery for his prostate cancer and developed a right lower extremity DVT. States he was on anticoagulation with Lovenox for about 8 months. States that in the last 3 months he has had no changes in lifestyle or diet. He did take a flight to [facility] in about July 2018 when his mother . He does admit to being sedentary in his lifestyle which has progressively gotten worse in the last 2 months. States he sits on his home off his computer for 8-10 hours a day. He denies any family history of blood clots or blood-related cancers that he knows of. He denies any recent trips on flights or planes within the last 6 weeks. States that he follows up with urologist regarding his prostate cancer and has been told that he is in remission. He states that at this time his chest pain is about 1 out of 5 and he really does not have any shortness of breath. In the ED he had a CTA of the chest which showed pulmonary embolus bilaterally. Hospital Course Hospital Course: NÉSTOR SOARES is a 58 year old male with a past medical history of hypertension, hyperlipidemia, seizure disorder and DVT who presented to the ED complaining of shortness of breath. CTA chest reveals significant pulmonary embolus burden including saddle embolus bilateral main pulmonary arteries, lobar and segmental clot greatest in the bilateral lower lobes. Evidence of right heart strain with flattening of the intraventricular septum. Admitting hospitalist spoke with pulmonary medicine [facility]. Since the patient was hemodynamically stable, decided against TPA or transfer for more interventional approach. Patient was admitted to hospitalist service for PE, placed on heparin gtt. Hematology was consulted, Dr. Claudio recommended heparin gtt for 72 hours and transition to Xarelto. The patient remained stable during his inpatient stay. He had one episode of chest pain, the patient reported it as post-prandial pain in the epigastric region. EKG and cardiac enzymes were done, no significant findings. The patient's symptoms were most likely secondary to reflux. On hospital day #6 the patient was transitioned from heparin gtt to PO Xarelto 15mg BID. The patient was given instructions to take Xarelto 15mg BID for 3 weeks followed by Xarelto 20mg daily. The patient stated understanding of his discharge instructions. For further information regarding this patient's hospitalization, please refer to the EMR. Physical Exam Vital Signs: Temp Pulse Resp BP Pulse Ox 98.2 F 70 17 114/88 H 98 12/06/18 08:33 12/06/18 08:33 12/06/18 08:33 12/06/18 08:33 12/06/18 08:33 General appearance: PRESENT: no acute distress, well-developed, well-nourished Head exam: PRESENT: atraumatic, normocephalic Eye exam: PRESENT: conjunctiva pink, EOMI, PERRLA. ABSENT: scleral icterus Ear exam: PRESENT: normal external ear exam Mouth exam: PRESENT: moist, tongue midline Neck exam: ABSENT: carotid bruit, JVD, lymphadenopathy, thyromegaly Respiratory exam: PRESENT: clear to auscultation florian. ABSENT: rales, rhonchi, wheezes Cardiovascular exam: PRESENT: RRR. ABSENT: diastolic murmur, rubs, systolic murmur Pulses: PRESENT: normal dorsalis pedis pul Vascular exam: PRESENT: normal capillary refill GI/Abdominal exam: PRESENT: normal bowel sounds, soft. ABSENT: distended, gua rding, mass, organolmegaly, rebound, tenderness Rectal exam: PRESENT: deferred Extremities exam: PRESENT: full ROM. ABSENT: calf tenderness, clubbing, pedal edema Neurological exam: PRESENT: alert, awake, oriented to person, oriented to place, oriented to time, oriented to situation, CN II-XII grossly intact. ABSENT: motor sensory deficit Psychiatric exam: PRESENT: appropriate affect, normal mood. ABSENT: homicidal ideation, suicidal ideation Skin exam: PRESENT: dry, intact, warm. ABSENT: cyanosis, rash Results Laboratory Results: 12/06/18 05:30 12/02/18 04:45 12/01/18 12/01/18 12/01/18 09:40 11:21 13:19 Creatine Kinase CK-MB (CK-2) Troponin I Cancelled Cancelled 3.180 NT-Pro-B Natriuret Pep Cancelled Cancelled 44 12/01/18 12/01/18 12/01/18 15:46 15:46 21:45 Creatine Kinase 157 CK-MB (CK-2) 3.62 Troponin I 2.860 1.600 NT-Pro-B Natriuret Pep 12/03/18 12/03/18 14:33 14:33 Creatine Kinase 88 CK-MB (CK-2) < 0.22 Troponin I 0.118 NT-Pro-B Natriuret Pep Impressions: Chest/Abdomen CTA 12/01/18 09:30 IMPRESSION: Significant pulmonary embolus burden including saddle embolus, bilateral main pulmonary arteries, lobar and segmental clot greatest within the bilateral lower lobes. Evidence of right heart strain with flattening of the interventricular septum. Pertinent findings on the imaging study reported as a CRITICAL RESULT to Dr. Zamora at10:14 on 12/01/2018. Category of Critical Result: Pulmonary embolus with evidence of right heart strain. Status: Imported from PACS Qualifiers - * PATIENT BEING DISCHARGED WITH ANY OF THE FOLLOWING DIAGNOSIS: VTE (PE or DVT) VTE patient discharged on overlapping Therapy?: No Reason(s) for not prescribing Overlap Therapy:: Not indicated - PATIENT WAS TREATED WITH HEPARIN GTT, STARTED ON XARELTO WHILE INPATIENT AND D/C HOME ON XARELTO Plan Discharge Plan: XARELTO 15MG PO BID X 21 DAY. FOLLOWED BY XARELTO 20MG PO DAILY. FOLLOW UP WITH HEME/ONC. Time Spent: Less than 30 Minutes
== END 2018-12-06 09:55 | disposition home or self-care (01) | DRG 176 ==
LOC: ER 08:51 → EH 11:58 → 3W 14:00
PROVIDERS: ADMIT Family Medicine; ATTEND Internal Medicine
PROC: 3E0F73Z Introduction of Anti-inflammatory into Respiratory Tract, Via Natural or Artificial Opening (ICD-10-PCS; principal; 2018-12-01)
DX: I26.02 Saddle embolus of pulmonary artery with acute cor pulmonale (principal); I10 Essential (primary) hypertension; E78.5 Hyperlipidemia, unspecified; G40.909 Epilepsy, unspecified, not intractable, without status epilepticus; Z79.899 Other long term (current) drug therapy; Z86.718 Personal history of other venous thrombosis and embolism; Z85.89 Personal history of malignant neoplasm of other organs and systems; Z85.46 Personal history of malignant neoplasm of prostate; Z90.79 Acquired absence of other genital organ(s); Z87.891 Personal history of nicotine dependence; Z72.89 Other problems related to lifestyle
CPT/HCPCS: 36415; 71275; 80048; 80053; 81001; 82272; 82550; 82553; 83880; 84153; 84443; 84484; 85025; 85027; 85597; 85598; 85610; 85613; 85730; 85732; 86146; 86147; 86148; 86849; 93005; 93010; 93306; 99291; J1644; J2270; J3490

== ENCOUNTER 2019-02-06 08:23 | Emergency (ER) | payer MEDICAID ==
[2019-02-06 08:35] VITALS: BP 157/108
--- NOTE | 2019-02-06 08:43 | EKG REPORT ---
SEVERITY:- NORMAL ECG - SINUS RHYTHM : Confirmed by: Vick Carson MD 06-Feb-2019 08:42:37
--- NOTE | 2019-02-06 09:53 | RADIOLOGY REPORT (SQ) ---
EXAM DESCRIPTION: CHEST SINGLE VIEW COMPLETED DATE/TIME: 02/06/2019 9:36 am REASON FOR STUDY: chest pain COMPARISON: None. EXAM PARAMETERS: NUMBER OF VIEWS: One view. TECHNIQUE: Single frontal radiographic view of the chest acquired. RADIATION DOSE: NA LIMITATIONS: None. FINDINGS: LUNGS AND PLEURA: No opacities, masses or pneumothorax. No pleural effusion. MEDIASTINUM AND HILAR STRUCTURES: No masses. Contour normal. HEART AND VASCULAR STRUCTURES: Heart normal in size. Normal vasculature. BONES: No acute findings. HARDWARE: None in the chest. OTHER: No other significant finding. IMPRESSION: NO ACUTE RADIOGRAPHIC FINDING IN THE CHEST. TECHNICAL DOCUMENTATION: JOB ID: [id number] [email or web address]- All Rights Reserved Reading location - IP/workstation name: [email or web address]
[2019-02-06 10:20] LABS: ABSOLUTE EOSINOPHILS # (AUTO) 0.1 10^3/uL (0.0-0.6); ABSOLUTE LYMPHOCYTES (AUTO) 2.1 10^3/uL (0.5-4.7); ABSOLUTE MONOCYTES (AUTO) 0.6 10^3/uL (0.1-1.4); ABSOLUTE NEUT (AUTO) 4.1 10^3/uL (1.7-8.2); BASOPHILS % (AUTO) 0.6 % (0-2); EOSINOPHILS % (AUTO) 1.5 % (0-6); HEMATOCRIT 47.3 % (37.9-51.0); HEMOGLOBIN 15.7 g/dL (13.5-17.0); LYMPHOCYTES % (AUTO) 29.6 % (13-45); MEAN CORPUSCULAR HEMOGLOBIN 26.1 pg (27.0-33.4); MEAN CORPUSCULAR HGB CONC 33.2 g/dL (32.0-36.0); MEAN CORPUSCULAR VOLUME 79 fl (80-97); MONOCYTES % (AUTO) 9.2 % (3-13); PLATELET COUNT 176 10^3/uL (150-450); RED BLOOD COUNT 6.01 10^6/uL (4.35-5.55); RED CELL DISTRIBUTION WIDTH 13.8 % (11.5-14.0); SEGMENTED NEUTROPHILS % (AUTO) 59.1 % (42-78); TOTAL CELLS COUNTED % (AUTO) 100 %; WHITE BLOOD COUNT 6.9 10^3/uL (4.0-10.5)
--- NOTE | 2019-02-06 10:35 | ER Document Report ---
ED General - General Chief Complaint: Chest Pain Stated Complaint: CHEST PAIN Time Seen by Provider: 02/06/19 09:09 Primary Care Provider: BIJAL NICHOLS MD [Primary Care Provider] - Follow up as needed TRAVEL OUTSIDE OF THE [place] IN LAST 30 DAYS: No - HPI Notes: Patient is a 58-year-old male who presents emergency department for evaluation of chest pain. He states he started developing chest pain in the middle the night. He states it was on his right side and on his left side. It seemed to be more positional than anything else. Initially it was worsened with a deep breath. He states now, when he lays on his back, he has absolutely no chest pain. Patient was recently diagnosed with pulmonary emboli, has been on Xarelto. He states he has been taking it as prescribed. When he was first diagnosed, he was having exertional chest pain and dyspnea. He denies any of that now. He states that he has been slightly worried about this since it started. - Related Data Allergies/Adverse Reactions: No Known Allergies Allergy (Verified 02/06/19 08:23) Past Medical History - General Information source: Patient, Relative - Social History Smoking Status: Former Smoker Family History: Reviewed & Not Pertinent - Past Medical History Cardiac Medical History: Reports: Hx DVT, Hx Hypercholesterolemia, Hx Hypertension, Hx Pulmonary Embolism Neurological Medical History: Reports: Hx Seizures Renal/ Medical History: Denies: Hx Peritoneal Dialysis Malignancy Medical History: Reports Hx Prostate Cancer Psychiatric Medical History: Denies: Hx Depression Past Surgical History: Reports: Other - prostatectomy Review of Systems - Review of Systems Constitutional: No symptoms reported EENT: No symptoms reported Cardiovascular: See HPI Respiratory: No symptoms reported Gastrointestinal: No symptoms reported Genitourinary: No symptoms reported Musculoskeletal: No symptoms reported Skin: No symptoms reported Neurological/Psychological: No symptoms reported Physical Exam - Vital signs Vitals: Temp Pulse Resp BP Pulse Ox 98.7 F 74 18 157/108 H 97 02/06/19 08:33 02/06/19 08:33 02/06/19 08:33 02/06/19 08:33 02/06/19 08:33 - Notes Notes: Vital signs reviewed, please refer to chart. Head is normocephalic, atraumatic. Pupils equal round, reactive to light. Neck is supple without meningismus. Heart is regular rate and rhythm. Lungs are clear to auscultation bilaterally. Abdomen is soft, nontender, normoactive bowel sounds throughout. Extremities without cyanosis, clubbing. Posterior calves are nontender. Peripheral pulses are equal. Skin is warm and dry. Patient is awake, alert, neurological exam is nonfocal. Course - Re-evaluation Re-evalutation: 02/06/19 10:39 Patient presents emergency department for evaluation of chest pain. Seems to be more positional. It came on at rest, while in bed. He is being treated appropriately with the Xarelto. EKG is unchanged, heart rate in the 70s. Laboratory investigations obtained. Patient actually states he really has no pain at this time. We will continue to follow. 02/06/19 11:25 Patient remained pain free throughout the course of his stay. His heart rate remained in the 70s and low 80s. Patient is actually hungry, anxious to be discharged. I explained to him that all of his findings were negative here, but certainly if his pain returns he should come back to the ED. He voiced underst anding to this and the patient was discharged. - Vital Signs Vital signs: Temp Pulse Resp BP Pulse Ox 98.7 F 74 18 157/108 H 97 02/06/19 08:33 02/06/19 08:33 02/06/19 08:33 02/06/19 08:33 02/06/19 08:33 - Laboratory Result Diagrams: 02/06/19 10:00 02/06/19 10:00 Laboratory results interpreted by me: 02/06/19 10:00 RBC 6.01 H MCV 79 L MCH 26.1 L - Diagnostic Test Radiology reviewed: Reports reviewed Radiology results interpreted by me: 02/06/19 10:39 Chest X-Ray 02/06/19 09:20 IMPRESSION: NO ACUTE RADIOGRAPHIC FINDING IN THE CHEST. - EKG Interpretation by Me Additional EKG results interpreted by me: 02/06/19 10:39 Sinus mechanism with a rate of 77 bpm. Normal axis and intervals, no acute ST changes concerning for ischemia or infarction. No significant change compared to prior study. Discharge - Discharge Clinical Impression: Chest pain Condition: Stable Disposition: HOME, SELF-CARE Instructions: Chest Pain of Unclear Cause ([facility]) Additional Instructions: Her home medications as prescribed. Follow-up with your primary care physician this week. Return to the emergency department with worsening or new concerning symptoms of any sort. Referrals: BIJAL NICHOLS MD [Primary Care Provider] - Follow up as needed
[2019-02-06 10:39] LABS: ALANINE AMINOTRANSFERASE 31 U/L (21-72); ALBUMIN 4.7 g/dL (3.5-5.0); ALKALINE PHOSPHATASE 58 U/L (38-126); ANION GAP 13 (5-19); ASPARTATE AMINO TRANSFERASE 26 U/L (17-59); BILIRUBIN,DIRECT 0.3 mg/dL (0.0-0.4); BILIRUBIN,TOTAL 0.3 mg/dL (0.2-1.3); BLOOD UREA NITROGEN 13 mg/dL (7-20); CARBON DIOXIDE 28 mmol/L (22-30); CHLORIDE 100 mmol/L (98-107); CREATINE KINASE 141 U/L (55-170); GLUCOSE 97 mg/dL (75-110); POTASSIUM 4.6 mmol/L (3.6-5.0); SODIUM 140.7 mmol/L (137-145)
[2019-02-06 11:02] LABS: TROPONIN I < 0.012 ng/mL
== END 2019-02-06 11:46 | disposition home or self-care (01) ==
LOC: ER 08:23
DX: R07.9 Chest pain, unspecified (principal); I26.99 Other pulmonary embolism without acute cor pulmonale; I10 Essential (primary) hypertension; Z85.46 Personal history of malignant neoplasm of prostate; Z87.891 Personal history of nicotine dependence
CPT/HCPCS: 36415; 71045; 80053; 82550; 82553; 84484; 85025; 93005; 93010; 99285

== ENCOUNTER → 2019-02-25 | Outpatient (CLI) | payer MEDICAID ==
--- NOTE | 2019-02-25 10:59 | RADIOLOGY REPORT (SQ) ---
EXAM DESCRIPTION: BARIUM SWALLOW ESOPHAGUS COMPLETED DATE/TIME: 02/25/2019 8:34 am REASON FOR STUDY: CHEST PAIN (R07.9) R07.9 CHEST PAIN, UNSPECIFIED COMPARISON: None. TECHNIQUE: Under fluoroscopic guidance, patient ingested effervescent granules followed by thick and thin barium. Fluoroscopic spot images and routine radiographic images acquired and stored on PACS. 12 MM BARIUM TABLET GIVEN: Yes. No significant delay in passage. LIMITATIONS: None. FLUOROSCOPY TIME: FLUORO TIME: 1 minutes 7 seconds of fluoroscopy was used. 6 images saved to PACS. FINDINGS: NEUROMUSCULAR COORDINATION OF SWALLOW: Normal. No aspiration. ESOPHAGEAL MOTILITY: Normal peristalsis. No esophageal spasm. ESOPHAGEAL MUCOSA: Normal mucosa without masses or ulceration. GASTRO-ESOPHAGEAL JUNCTION: Small sliding hiatal hernia with mild gastroesophageal reflux. 12 mm bar ium tablet passed through the esophagus and into the stomach without delay. NON-GI TRACT STRUCTURES: No significant finding. OTHER: No other significant finding. IMPRESSION: SMALL HIATAL HERNIA WITH MILD GASTROESOPHAGEAL REFLUX. COMMENT: Quality ID 145: Final reports for procedures using fluoroscopy that document radiation exp osure indices, or exposure time and number of fluorographic images (if radiation exposure indices are not available) TECHNICAL DOCUMENTATION: JOB ID: [id number] [employer]- All Rights Reserved Reading location - IP/workstation name: [email or web address] [id number]
== END ==
LOC: RAD 07:31
PROVIDERS: ATTEND Family Medicine
DX: R07.9 Chest pain, unspecified (principal)
CPT/HCPCS: 74220

== ENCOUNTER → 2019-03-04 | Outpatient (CLI) | payer MEDICAID ==
--- NOTE | 2019-03-04 14:02 | RADIOLOGY REPORT (SQ) ---
EXAM DESCRIPTION: NM WHOLE BODY BONE SCAN COMPLETED DATE/TIME: 03/04/2019 1:13 pm REASON FOR STUDY: CHEST PAIN (R07.9) M85.80 OTH DISRD OF BONE DENSITY AND STRUCTURE, UNSPECIFIED History of prostatectomy in 2016, back pain COMPARISON: CT abdomen pelvis 11/10/2016, 01/06/2017, 03/04/2017 CT angio chest 12/01/2018 RADIONUCLIDE AND DOSE: 21.8 millicuries Tc99m MDP. The route of agent administration: Intravenous. ADDITIONAL DRUGS AND DOSES: None. TECHNIQUE: Routine delayed images at 3 hour post radionuclide injection acquired of the bony skeleto n including anterior and posterior whole-body projections and additional focused images as needed. LIMITATIONS: None. FINDINGS: BONES: Minimal increased uptake along the right T8 and T10 costovertebral joints. Minimal increased uptake over the right patella. No uptake worrisome for metastatic disease given history of prostate cancer. KIDNEYS: Symmetric excretion without obstruction. OTHER: No other significant finding. IMPRESSION: No uptake worrisome for metastatic disease given history of prostate cancer COMMENT: Quality measure 147: Current bone scan is compared with any available plain radiographs, p rior bone scans, and CT/MRI. TECHNICAL DOCUMENTATION: JOB ID: [id number] [employer]- All Rights Reserved Reading location - IP/workstation name: [email or web address]
== END ==
LOC: RAD 07:44
PROVIDERS: ATTEND Family Medicine
DX: M85.80 Other specified disorders of bone density and structure, unspecified site (principal); R07.9 Chest pain, unspecified
CPT/HCPCS: 78306; A9561; Q9969

== ENCOUNTER 2019-09-30 14:49 | Emergency (ER) | payer MEDICAID ==
--- NOTE | 2019-09-30 15:21 | ER Document Report ---
ED Medical Screen (RME) - General Chief Complaint: Shoulder Pain Stated Complaint: SHOULDER/ARM PAIN Time Seen by Provider: 09/30/19 15:20 Primary Care Provider: RAQUEL BENEDICT DO [Primary Care Provider] - Follow up as needed Mode of Arrival: Ambulatory Information source: Patient Notes: 58-year-old male presents to ED for complaint of right lateral chest pain. He states this started a week ago with pain in his right scapular area. He states it was in the middle of the night and woke him up and then when he changed position the pain did get better last week. Pain that he is having right now has been for about 2 days and is much worse when he moves. The big concern is he has had pulmonary emboli 2017 and in 2019. He is on aspirin and Xarelto at this time. Will order blood work and CTA. Patient will be seen by another provider I have greeted and performed a rapid initial assessment of this patient. A comprehensive ED assessment and evaluation of the patient, analysis of test results and completion of medical decision making process will be conducted by an additional ED providers. TRAVEL OUTSIDE OF THE [place] IN LAST 30 DAYS: No - Related Data Allergies/Adverse Reactions: No Known Allergies Allergy (Verified 02/06/19 08:23) Past Medical History - Past Medical History Cardiac Medical History: Reports: Hx DVT, Hx Hypercholesterolemia, Hx Hypertension, Hx Pulmonary Embolism Neurological Medical History: Reports: Hx Seizures Renal/ Medical History: Denies: Hx Peritoneal Dialysis Malignancy Medical History: Reports Hx Prostate Cancer Psychiatric Medical History: Denies: Hx Depression Past Surgical History: Reports: Other - prostatectomy Physical Exam - Vital signs Vitals: Temp Pulse Resp BP Pulse Ox 98.6 F 88 16 147/85 H 99 09/30/19 15:03 09/30/19 15:03 09/30/19 15:03 09/30/19 15:03 09/30/19 15:03 Course - Vital Signs Vital signs: Temp Pulse Resp BP Pulse Ox 98.6 F 88 16 147/85 H 99 09/30/19 15:03 09/30/19 15:03 09/30/19 15:03 09/30/19 15:03 09/30/19 15:03 Doctor's Discharge - Discharge Referrals: RAQUEL BENEDICT DO [Primary Care Provider] - Follow up as needed
--- NOTE | 2019-09-30 15:29 | ER Document Report ---
ED Medical Screen (RME) - General Chief Complaint: Chest Pain Stated Complaint: SHOULDER/ARM PAIN Time Seen by Provider: 09/30/19 15:20 Primary Care Provider: RAQUEL BENEDICT DO [Primary Care Provider] - Follow up as needed Mode of Arrival: Ambulatory Notes: I evaluated new RME note that did not change the chief complaint. He is complaining of right lateral chest pain with history of PE in 2017 and 2019. He is on Eliquis. He states he did have pain in the right scapular area a week ago that was relieved with change of position and then again 3 days ago he started with the right lateral chest pain which increases with movement or deep breath. I have greeted and performed a rapid initial assessment of this patient. A comprehensive ED assessment and evaluation of the patient, analysis of test results and completion of medical decision making process will be conducted by an additional ED providers. TRAVEL OUTSIDE OF THE [place] IN LAST 30 DAYS: No - Related Data Allergies/Adverse Reactions: No Known Allergies Allergy (Verified 02/06/19 08:23) Past Medical History - Social History Frequency of alcohol use: None Drug Abuse: None - Past Medical History Cardiac Medical History: Reports: Hx DVT, Hx Hypercholesterolemia, Hx Hypertension, Hx Pulmonary Embolism Neurological Medical History: Reports: Hx Seizures Renal/ Medical History: Denies: Hx Peritoneal Dialysis Malignancy Medical History: Reports Hx Prostate Cancer Psychiatric Medical History: Denies: Hx Depression Past Surgical History: Reports: Other - prostatectomy Physical Exam - Vital signs Vitals: Temp Pulse Resp BP Pulse Ox 98.6 F 88 16 147/85 H 99 09/30/19 15:03 09/30/19 15:03 09/30/19 15:03 09/30/19 15:03 09/30/19 15:03 Course - Vital Signs Vital signs: Temp Pulse Resp BP Pulse Ox 98.6 F 88 16 147/85 H 99 09/30/19 15:03 09/30/19 15:03 09/30/19 15:03 09/30/19 15:03 09/30/19 15:03 Doctor's Discharge - Discharge Referrals: RAQUEL BENEDICT DO [Primary Care Provider] - Follow up as needed
[2019-09-30 16:23] LABS: ABSOLUTE BASOPHILS # (AUTO) 0.1 10^3/uL (0.0-0.2); ABSOLUTE EOSINOPHILS # (AUTO) 0.2 10^3/uL (0.0-0.6); ABSOLUTE LYMPHOCYTES (AUTO) 2.7 10^3/uL (0.5-4.7); ABSOLUTE MONOCYTES (AUTO) 0.9 10^3/uL (0.1-1.4); ABSOLUTE NEUT (AUTO) 5.7 10^3/uL (1.7-8.2); BASOPHILS % (AUTO) 0.6 % (0-2); EOSINOPHILS % (AUTO) 2.3 % (0-6); HEMATOCRIT 46.6 % (37.9-51.0); HEMOGLOBIN 15.5 g/dL (13.5-17.0); LYMPHOCYTES % (AUTO) 28.1 % (13-45); MEAN CORPUSCULAR HEMOGLOBIN 26.5 pg (27.0-33.4); MEAN CORPUSCULAR HGB CONC 33.2 g/dL (32.0-36.0); MEAN CORPUSCULAR VOLUME 80 fl (80-97); MONOCYTES % (AUTO) 9.6 % (3-13); PLATELET COUNT 171 10^3/uL (150-450); RED BLOOD COUNT 5.84 10^6/uL (4.35-5.55); RED CELL DISTRIBUTION WIDTH 13.6 % (11.5-14.0); SEGMENTED NEUTROPHILS % (AUTO) 59.4 % (42-78); TOTAL CELLS COUNTED % (AUTO) 100 %; WHITE BLOOD COUNT 9.6 10^3/uL (4.0-10.5)
[2019-09-30 16:29] LABS: INTERNATIONAL RATION (INR) 1.15; PROTHROMBIN TIME 14.7 SEC (11.4-15.4)
[2019-09-30 16:40] LABS: ALBUMIN 4.8 g/dL (3.5-5.0); ALKALINE PHOSPHATASE 69 U/L (38-126); ANION GAP 11 (5-19); ASPARTATE AMINO TRANSFERASE 34 U/L (17-59); BILIRUBIN,DIRECT 0.2 mg/dL (0.0-0.4); BILIRUBIN,TOTAL 0.2 mg/dL (0.2-1.3); BLOOD UREA NITROGEN 14 mg/dL (7-20); CALCIUM 9.7 mg/dL (8.4-10.2); CARBON DIOXIDE 29 mmol/L (22-30); CHLORIDE 100 mmol/L (98-107); GLUCOSE 114 mg/dL (75-110); TOTAL PROTEIN 8.5 g/dL (6.3-8.2)
--- NOTE | 2019-09-30 21:21 | ER Document Report ---
ED General - General Chief Complaint: Chest Pain Stated Complaint: SHOULDER/ARM PAIN Time Seen by Provider: 09/30/19 15:20 Primary Care Provider: YULI SHABAZZ MD [ACTIVE STAFF] - Follow up in 3-5 days RAQUEL BENEDICT DO [Primary Care Provider] - Follow up in 3-5 days Mode of Arrival: Ambulatory Notes: 58-year-old male with history of PE in 2019 and DVT 2017 presents for right-sided chest pain that started last week. Patient states that initially woke him from sleep at around 3 AM last week and states it goes from his shoulder related to the front of his right chest. Patient states it eased off after 30 minutes but it has been coming and going for the past week and will not radiate anywhere else. Patient states it is worse with exertion and with deep breaths. Patient denies any dyspnea, nausea/vomiting, syncope, near syncope, dizziness, fever, cough. TRAVEL OUTSIDE OF THE [place] IN LAST 30 DAYS: No - Related Data Allergies/Adverse Reactions: No Known Allergies Allergy (Verified 02/06/19 08:23) Past Medical History - General Information source: Patient - Social History Smoking Status: Never Smoker Frequency of alcohol use: None Drug Abuse: None Family History: Reviewed & Not Pertinent Patient has suicidal ideation: No Patient has homicidal ideation: No - Past Medical History Cardiac Medical History: Reports: Hx DVT, Hx Hypercholesterolemia, Hx Hypertension, Hx Pulmonary Embolism Neurological Medical History: Reports: Hx Seizures Renal/ Medical History: Denies: Hx Peritoneal Dialysis Malignancy Medical History: Reports Hx Prostate Cancer Psychiatric Medical History: Denies: Hx Depression Past Surgical History: Reports: Other - prostatectomy Review of Systems - Review of Systems Notes: Constitutional: Negative for fever. HENT: Negative for sore throat. Eyes: Negative for visual changes. Cardiovascular: Positive for chest pain. Respiratory: Negative for shortness of breath. Gastrointestinal: Negative for abdominal pain, vomiting or diarrhea. Genitourinary: Negative for dysuria. Musculoskeletal: Negative for back pain. Skin: Negative for rash. Neurological: Negative for headaches, weakness or numbness. 10 point ROS negative except as marked above and in HPI. Physical Exam - Vital signs Vitals: Temp Pulse Resp BP Pulse Ox 98.6 F 88 16 147/85 H 99 09/30/19 15:03 09/30/19 15:03 09/30/19 15:03 09/30/19 15:03 09/30/19 15:03 - Notes Notes: GENERAL: Well-appearing, well-nourished and in no acute distress. HEAD: Atraumatic, normocephalic. EYES: Extraocular movements intact, sclera anicteric, conjunctiva are normal. NECK: Normal range of motion, supple without lymphadenopathy or JVD. LUNGS: Breath sounds clear to auscultation bilaterally and equal. No wheezes rales or rhonchi. HEART: Regular rate and rhythm without murmurs, rubs or gallops. EXTREMITIES: Normal range of motion, no pitting or edema. No clubbing or cyanosis. NEUROLOGICAL: Cranial nerves II through XII grossly intact. Normal speech, normal gait. PSYCH: Normal mood, normal affect. SKIN: Warm, Dry, normal turgor, no rashes or lesions noted. Course - Re-evaluation Re-evalutation: 09/30/19 nontoxic, well-appearing 58-year-old male presents with right-sided chest pain. Worse with exertion and deep breaths. Patient denies any dyspnea. No signs of respiratory distress. No hypoxia or tachycardia. Patient is afebrile. Lungs clear to auscultation bilaterally. Regular rate and rhythm. PE is otherwise unremarkable. Patient has a history of right lower extremity DVT in 2017 and was diagnosed with a PE in 2019 and was admitted to this hospital for the same. Patient is still on Xarelto and aspirin for the same. EKG shows no ST elevation. Initial troponin is negative. Repeat troponin ordered and CT angio chest. CTA chest neg for PE. 2nd trop neg. Discussed all results with pt and pt's . Pt to follow up with PCP and given referral to c application developer. Strict return precautions given. Pt and pt's voice understanding and agree with plan of care. - Vital Signs Vital signs: Temp Pulse Resp BP Pulse Ox 98.4 F 75 15 148/99 H 99 10/01/19 01:03 10/01/19 01:03 10/01/19 01:03 10/01/19 01:03 10/01/19 01:03 - Laboratory Result Diagrams: 09/30/19 16:03 09/30/19 16:03 Laboratory results interpreted by me: 01/31/20 01/31/20 16:03 16:03 RBC 5.84 H MCH 26.5 L Glucose 114 H Total Protein 8.5 H Discharge - Discharge Clinical Impression: Chest pain Qualifiers: Chest pain type: unspecified Qualified Code(s): R07.9 - Chest pain, unspecified Condition: Stable Disposition: HOME, SELF-CARE Instructions: Chest Pain of Unclear Cause ([facility]) Additional Instructions: Your CT chest did not show any blood clots. The exact cause of your pain is uncl ear. However, based on your cardiac enzyme testing, chest x-ray, and EKG it does not appear that it is from an immediately life-threatening cause at this time. Although your testing here is normal is critical that you follow-up with your primary care physician for continued evaluation of this chest pain and possible stress testing. I recommended you see your physician within the next 24-48 hours to be evaluated for consideration of a stress test. Please return to emergency department immediately if you have worsening of your chest pain, shortness of breath, vomiting, become unable to exert yourself due to pain or difficulty breathing, you pass out, or have any pain that radiates into your arms, jaw, or back. Please also return if you have any additional symptoms that are concerning to you. Forms: Special Work Note Referrals: RAQUEL BENEDICT DO [Primary Care Provider] - Follow up in 3-5 days YULI SHABAZZ MD [ACTIVE STAFF] - Follow up in 3-5 days
--- NOTE | 2019-09-30 23:11 | RADIOLOGY REPORT (SQ) ---
EXAM DESCRIPTION: CT CHEST ANGIOGRAPHY WITHOUT THEN WITH IV CONTRAST COMPLETED DATE/TME: 09/30/2019 15:24 CLINICAL HISTORY: 58 years, Male, Right lateral chest pain hx of PE in 2017, 2019 COMPARISON: None. TECHNIQUE: Images stored on PACS. All CT scanners at this facility use dose modulation, iterative reconstruction, and/or weight based dosing when appropriate to reduce radiation dose to as low as reasonably achievable (ALARA). [facility]: Dose Right [facility]: CareDose [facility]: Dose Right [facility]: Teradose 4D [facility]: [employer] LIMITATIONS: None. FINDINGS: No evidence of pulmonary embolus. The aorta is calcified without aneurysm or dissection. The aorta is of normal size. No effusion. No mediastinal adenopathy. Thyroid is homogeneous. The lungs are clear. No effusion. No pneumothorax. Visualized abdominal contents are unremarkable. The visualized bones demonstrate age-appropriate osteoarthritis. Ankylosing arthropathy of the thoracic spine. IMPRESSION: No evidence of pulmonary embolus. Lungs grossly clear. TECHNICAL DOCUMENTATION: Quality ID # [id number]: Final reports with documentation of one or more dose reduction techniques (e.g., Automated exposure control, adjustment of the mA and/or kV according to patient size, use of iterative reconstruction technique) copyright 2010 [email or web address]- All Rights Reserved
[2019-10-01 01:04] VITALS: BP 148/99
--- NOTE | 2019-10-01 23:54 | EKG REPORT ---
SEVERITY:- NORMAL ECG - SINUS RHYTHM : Confirmed by: José Miguel Thompson 01-Oct-2019 23:53:59
== END 2019-10-01 01:04 | disposition home or self-care (01) ==
LOC: ER 14:49
DX: R07.9 Chest pain, unspecified (principal); I10 Essential (primary) hypertension; Z85.46 Personal history of malignant neoplasm of prostate; Z86.711 Personal history of pulmonary embolism; Z86.718 Personal history of other venous thrombosis and embolism; Z79.01 Long term (current) use of anticoagulants; Z79.82 Long term (current) use of aspirin
CPT/HCPCS: 36415; 71275; 80053; 84484; 85025; 85610; 85730; 93005; 93010; 99284

== ENCOUNTER → 2019-10-07 | Outpatient (CLI) | payer MEDICAID ==
--- NOTE | 2019-10-07 09:26 | RADIOLOGY REPORT (SQ) ---
EXAM DESCRIPTION: SHOULDER RIGHT 2 OR MORE VIEWS COMPLETED DATE/TIME: 10/07/2019 8:13 am REASON FOR STUDY: PAIN IN RIGHT SHOULDER M25.511 PAIN IN RIGHT SHOULDER COMPARISON: None. NUMBER OF VIEWS: Three views. TECHNIQUE: Internal rotation, external rotation, and Y view images acquired of the right shoulder. LIMITATIONS: None. FINDINGS: MINERALIZATION: Normal. BONES: No acute fracture. No worrisome bone lesions. JOINTS: No dislocation. Mild acromioclavicular osteoarthropathy. VISUALIZED LUNGS AND RIBS: No pneumothorax. No rib fracture. SOFT TISSUES: No radiopaque foreign body. OTHER: No other significant finding. IMPRESSION: No evidence of acute bony abnormality of the right shoulder. Mild acromioclavicular osteoarthropathy. TECHNICAL DOCUMENTATION: JOB ID: [id number] [employer]- All Rights Reserved Reading location - IP/workstation name: [email or web address]
== END ==
LOC: OD 08:04
PROVIDERS: ATTEND Family Medicine
DX: M19.011 Primary osteoarthritis, right shoulder (principal); M25.511 Pain in right shoulder